=== PATIENT | female | born 1965 | race Caucasian/White ===

== ENCOUNTER 2017-11-11 05:59 | Day surgery (SDC) | payer OTHER, SELFPAY ==
--- NOTE | 2017-11-11 07:30 | MISC_PTH ---
PATIENT: ROSE REYES LOC: [facility] – [place] U#:[id number] AGE/SX: 52/F ROOM: RE11/11/[address]: Dr. Janiya Catalan, MDDOB: 1965 BED: DIS: 11/11/2017 SPEC #: [id number] RECD: 11/11/17 09:15 STATUS: RYLEE JABARI #: [id number] NAE: 11/11/17 07:[address]: Janiya Catalan DEPT: SURGICAL PATHOLOGY RECD BY: Teo Prasad ENTERED: 11/11/17 10:15 SP TYPE: MISC OTHR DR: Dr. Ivan Hannah MD Tissues: Fibrous tissue Procedures: Surgery Specimen Level IV HEADER OPERATION: Hysteroscopy, D & C, Symphion resection fibroid PRE-OP DIAGNOSIS: Thickened endometrium, postmenopausal bleeding, submucosal fibroid TISSUE SUBMITTED: Submucosal fibroid MICROSCOPIC DIAGNOSIS Submucosal fibroid, curettage: Multiple fragments of myometrial tissue consistent with submucosal leiomyoma. Weakly proliferative to inactive endometrium with focal stromal hyperplasia suggestive of exogenous hormonal defect. AM:georgina 11/12/17 MICROSCOPIC DESCRIPTION Slides are reviewed. GROSS DESCRIPTION Received in fixative is one container labeled with the patient's name and designated submucosal fibroid. The specimen consists of multiple pieces of vázquez-white soft tissue mixed with blood clots that in aggregate measure 3 x 2.5 x 0.3 cm. The entire specimen is submitted in one cassette. / SJ:georgina 11/11/17 TC:5 CPT: 67617 ADDENDUM ADDENDUM ADDENDUM ADDENDUM 11/17/2017 09:14 ADDENDUM 11/17/2017 09:14 ADDENDUM 11/17/2017 09:14 ADDENDUM 11/17/2017 09:14 ADDENDUM 11/17/2017 09:14 The stromal hyperplasia does not contain atypia. AM:georgina 11/17/17
[2017-11-11 07:34] LABS: Hemoglobin 14.4 g/dl (12.0-15.0); Mean Corp Hgb Conc 33.5 g/gl (32-36); Mean Corpuscular Hgb 30.6 pg (27.0-32.0); Mean Corpuscular Volume 91.3 fL (81-99); Mean Platelet Vol. 10.9 fl (6.2-12.0); Platelet Count 263 K/mm3 (150-450); RBC Distribution Width CV 12.9 % (11.6-14.6); RBC Distribution Width SD 42.4 fl (35.1-43.9); Red Blood Count 4.71 M/mm3 (4.2-5.4); White Blood Count 6.7 K/mm3 (4.4-11.0)
[2017-11-11 07:37] LABS: Scan Indicated on CBC? Y/N NO
[2017-11-11] MEDS: Lubricating Jelly 60 GM Tube 30 GM TOPICAL (07:41)
--- NOTE | 2017-11-11 08:11 | PCM.OP.BLANK ---
Operative Report Date of Procedure: 11/11/[address] Janiya Cruz-Vila Reinforcing Steel Worker: NONE Preoperative diagnosis:PMB, submucosal fibroid Postoperative diagnosis: Same Procedure performed: Hysteroscopy, dilation and curettage, Partial removal of submucosal fibroid Complications: None Implantable devices: none Estimated blood loss: 5 cc Drains: None Specimens: submucosal fibroid Anesthesia: MAC findings: Large submucosal fibroid noted approximately 4cm- unable to excise completely due to fluid deficit restrictions. I was able to visualize both ostia- cavity was evaluated multiple times during procedure due to fluid deficit of 2250cc but cavity was intact. bleeding from fibroid noted during procedure. Informed consent was obtained the patient was taken the operating room she was placed in supine position. She was given anesthesia. She was then placed in the [facility] where she was prepped and draped in the normal sterile fashion. At this time the weighted speculum was placed in the posterior fornix of vagina. Single-tooth tenaculum was used to gently grasp the anterior lip the cervix. At this time the uterine cavity was sounded to approximately 7 cm. Gentle dilatation was performed once adequate dilatation of the cervix was achieved the hysteroscope using normal saline as a distention medium was placed. large submucosal fibroid- with based located posteriorly- Tubal ostia visualized. Symphion operative scope was used to excise fibroid- unable to completly excise due to size and fluid deficit restrictions. This time procedure was deemed complete. Moderate amount of tissue removed. This will be sent to pathology for evaluation. procedure stopped at this time. pt in stable condition. will discuss findings and further management options with patient. Anticipated normal postoperative course. Instrument lap count correct ?2. Vaginal Sweep was negative.
[2017-11-11 08:17] VITALS: BP 114/75; BP 118/62; PULSE 77; RESP 16; TEMP 36.7; O2SAT 98
--- NOTE | 2017-11-11 08:18 | PCM.DC.D&C ---
Discharge Diet: No Restrictions Discharge Activity: Return to Normal Activity, May Shower, May Take a Tub Bath - in 2 weeks. May resume sexual activity in: 2 weeks Call your doctor if you observe: Fever of 101 or Higher, Using more than one pad per hour Allergies/Adverse Reactions: Allergies No Known Allergies Allergy (Verified 11/04/17 13:38) Medications to take at Discharge Aspirin E.C. [Ecotrin] 81 mg PO DAILY@0800 11/04/17 Calcium Carbonate/Vitamin D3 [Calcium 600-Vit D3 200 Tablet] 1 each PO DAILY 11/04/17 Cholecalciferol (Vitamin D3) [Vitamin D3] 1,000 unit PO DAILY 11/04/17 Multivitamin [Multiple Vitamins] 1 each PO DAILY 11/04/17 Pravastatin Sodium 80 mg PO DAILY 11/04/17 Ubidecarenone [Coq10] 100 mg PO DAILY 11/04/17 Ibuprofen [Motrin] 800 mg PO Q8H PRN PRN #30 tab 11/11/17 The following prescriptions were given: Ibuprofen [Motrin] 800 mg PO Q8H PRN PRN #30 tab PRN Reason: Pain Primary Care Physician: Ivan Hannah MD [Primary Care Provider] - Test Results: Test results from this visit will be discussed in further detail at your follow-up appointment, if applicable.
[2017-11-11 08:20] VITALS: BP 118/62; BP 123/71; PULSE 76; RESP 16; O2SAT 97
[2017-11-11 08:25] VITALS: BP 118/62; BP 123/71; PULSE 71; RESP 16; O2SAT 97
[2017-11-11 08:31] VITALS: BP 118/62; BP 124/77; PULSE 73; RESP 16; TEMP 36.7; O2SAT 96
[2017-11-11] MEDS: HYDROcodone Bitartrate/Apap 5/325 Tablet PO (08:47)
[2017-11-11 09:17] VITALS: BP 111/67; BP 118/62; PULSE 68; RESP 18; TEMP 36.2; O2SAT 97
== END 2017-11-11 09:19 | disposition home or self-care (01) ==
LOC: SDC 07:28 → AC 07:29
PROVIDERS: Family Provider Family Medicine; PCP Family Medicine; Visit Provider Obstetrics & Gynecology
PROC: (CPT 58558; principal; 2017-11-11 07:15)
DX: D25.0 Submucous leiomyoma of uterus (principal); N95.0 Postmenopausal bleeding; E78.00 Pure hypercholesterolemia, unspecified; F17.210 Nicotine dependence, cigarettes, uncomplicated; Z79.82 Long term (current) use of aspirin; Z79.899 Other long term (current) drug therapy
CPT/HCPCS: 58558; 36415; 85027; 88305; J7120

== ENCOUNTER 2018-01-13 07:25 | Day surgery (SDC) | payer OTHER, SELFPAY ==
--- NOTE | 2018-01-07 06:38 | EKG12_ITS ---
Test Reason : PRE OP Blood Pressure : / mmHG Vent. Rate : 069 BPM Atrial Rate : 069 BPM P-R Int : 188 ms QRS Dur : 092 ms QT Int : 384 ms P-R-T Axes : 062 036 040 degrees QTc Int : 411 ms Normal sinus rhythm Normal ECG Confirmed by KARINA MOHR, WALTER ([id number]), movie editor INGRID SIU ([id number]) on 01/10/2018 2:56:10 PM Referred By: Janiya Catalan Confirmed By:WALTER COLLINS MD
[2018-01-07 07:33] LABS: Hematocrit 43.2 % (37-47); Mean Corp Hgb Conc 32.4 g/gl (32-36); Mean Corpuscular Hgb 30.1 pg (27.0-32.0); Mean Corpuscular Volume 92.9 fL (81-99); Mean Platelet Vol. 11.1 fl (6.2-12.0); Platelet Count 268 K/mm3 (150-450); RBC Distribution Width CV 12.9 % (11.6-14.6); RBC Distribution Width SD 42.9 fl (35.1-43.9); Red Blood Count 4.65 M/mm3 (4.2-5.4); Scan Indicated on CBC? Y/N NO; White Blood Count 7.6 K/mm3 (4.4-11.0)
[2018-01-07 07:56] LABS: Anion Gap 9 (5-15); BUN 15 mg/dL (7-18); BUN/Creat Ratio 19.9 RATIO (10-20); Calcium,Total 9.4 mg/dL (8.5-10.1); Chloride 109 mmol/L (98-107); Creatinine, Serum 0.76 mg/dL (0.55-1.02); EST Glomerular Filtration Rate 85 mL/min (>60); Est Glom Filt Rate - Afr Amer 103 mL/min (>60); Glucose 89 mg/dL (74-106); Potassium 4.2 mmol/L (3.5-5.1); Sodium Level 142 mmol/L (136-145)
[2018-01-13] VITALS (7 sets, daily range): BP systolic 105–132; BP diastolic 60–98; PULSE 55–96; RESP 16–18; TEMP 35.8–36.9; O2SAT 93–100; BMI 30.9
--- NOTE | 2018-01-13 | HYST_PTH ---
PATIENT: ROSE REYES LOC: [facility] – [place] U#:[id number] AGE/SX: 52/F ROOM: RE01/13/[address]: Dr. Janiya Catalan, MDDOB: 1965 BED: DIS: 01/13/2018 SPEC #: [id number] RECD: 01/13/18 14:00 STATUS: RYLEE JABARI #: [id number] NAE: 01/13/18 00:[address]: Janiya Catalan DEPT: SURGICAL PATHOLOGY RECD BY: Drew Faulkner ENTERED: 01/13/18 14:00 SP TYPE: HYSTERECT OTHR DR: Dr. Ivan Hannah MD Tissues: Uterus, NOS Procedures: Surgery Specimen Level V HEADER OPERATION: Hysterectomy, laparoscopic total, bilateral laparoscopic salpingectomy PRE-OP DIAGNOSIS: Thickened endometrial echo in postmenopausal female, uterine fibroids TISSUE SUBMITTED: Uterus and bilateral fallopian tubes MICROSCOPIC DIAGNOSIS Uterus and bilateral fallopian tubes, hysterectomy and bilateral salpingectomy: Cervix - chronic inflammation. Endometrium - weakly proliferative endometrium. Myometrium - intramural to submucosal leiomyomas x2 (1.5 and 3 cm in greatest dimension). Bilateral fallopian tubes - no pathologic diagnosis. SJ:georgina 01/14/18 MICROSCOPIC DESCRIPTION Slides are reviewed. GROSS DESCRIPTION Received in fixative is one container labeled with the patient's name and designated uterus and bilateral fallopian tubes. The specimen consists of a hysterectomy specimen consisting of uterus with cervix and detached bilateral fallopian tubes. The uterus with cervix weighs 65 gm and measures 7 x 5 x 4 cm. The serosal surface is vázquez, glistening. The ectocervical mucosa is unremarkable. The external os is circular in contour. The endocervical canal measures 2.5 cm in length and the endocervical mucosa is unremarkable. The endometrial cavity is saucer-shaped and measures 4 cm in length and up to 3.5 cm in width. The endometrium is vázquez, glistening without any mass lesion. Sections of the uterine wall reveal intramural to submucosal nodular mass measuring 3 cm in greatest dimension. A second intramural mass is also noted measuring 1.5 cm in greatest dimension. Both nodular masses are present in the posterior uterine wall. The uninvolved uterine wall measures up to 1 cm in thickness. Sections of these masses reveal vázquez whorled cut surfaces without areas of hemorrhage, necrosis or cystic degeneration. The fallopian tubes are not identified as right or left. One of the fallopian tubes measure 5.5 cm in length and 0.5 cm in diameter. The fimbrial end is identified. The second fallopian tube is similar appearance to first one and measures 5 cm in length and 0.5 cm in diameter. Integrity Analyst sections are submitted in nine cassettes as follows: 1 - anterior cervix, 2 - posterior cervix, 3 & 4 - anterior uterine wall, 5 & 6 - posterior uterine wall, section of smaller nodular mass, 7 - larger nodular masses, 8 & 9 - each cassette containing one fallopian tube. / SHAMA:georgina 01/13/18 TC:1 CPT: 87325
[2018-01-13] MEDS: Phenazopyridine 95 MG Tablet 190 MG PO (08:03)
[2018-01-13] MEDS: Bupivacaine Mpf 0.5% 30 ML VIAL (09:40)
[2018-01-13] MEDS: Lubricating Jelly 60 GM Tube 30 GM TOPICAL (09:40)
--- NOTE | 2018-01-13 11:35 | OP.PCM_ITS ---
Report of Operation Date of Procedure: 01/13/18 Pre-Operative Diagnosis: PMB, Simple endometrial hyperplasia without atypia, Fibroid uterus Post-Operative Diagnosis: same Surgery/Procedure Performed:: TLH, Bilateral salpingectomy, cystoscopy Description of Surgical Findings:: Cervix flush with vagina- uterus small approximately 7cm. Bilateral ovaries appear normal. data management engineer: None data management engineer: Suzan Hancock Type of Anesthesia:: General Special Medications: .5% marcaine Specimen's removed: uterus, bilateral fallopian tubes, cervix Drains: blackwood Estimated Blood Loss (mL): 25cc Fluids Replaced: 1500 Description of Procedure: Patient take to OR and prepped and draped in usual sterile fashion in dorsal lithotomy position with her arms tucked in a neurologically safe and neutral position. The uterus sounded to 7 cm. The Vcare uterine manipulator was sutured into place at 3/9:00 position and blackwood was placed. Attention was turned to the abdomen. All port sites were infiltrated with .5% marcaine before the incisions were made. The anterior abdominal wall was tented up with towel clamps and using a direct entry approach a 5 mm intraumbilical port was placed. Intraperitoneal placement was confirmed with the laparoscope and the pneumoperitoneum was created. The patient was placed in Trendelenburg and 5 mm right and left lower quadrant ports were placed under direct visualization. a Left upper port placed for bowel retraction. Air seal rapid insufflator was used. The bowel was swept away. Ovaries appeared normal. The mesosalpinx starting at fimbriated end were grasped, clamped, sealed and transected with the Ligasure. The round ligaments were divided. The anterior peritoneum was dissected down to create the bladder flap with blunt dissection and the LigaSure. The uterine arteries were isolated, clamped, sealed and cut. There was minimal back bleeding from the uterus. Straight bites on uterine arteries performed to drop them off the cuff. The Vcare was used as guide to create colpotomy using monopolar hook of ligasure. once specimen was removed attention was turned to vaginal portion. The specimen was handed off. The cuff was closed with interrupted 0-vicryl figure of 8 sutures. Cystoscopy was performed bilateral ureters were visualized with good efflux. bladder was intact. blackwood replaced and sponge stick placed in vagina. The pneumoperitoneum was recreated and the cuff and pedicles were hemostatic. The skin incisions were closed with skin glue and 3-0 monocryl. mattress stitch placed in Left upper port due to bleeding- good hemostasis appreciated. The vaginal sweep was completed by me. Grafts/Implants Used: none Grafts/Implants Used: none - Complications none - Admit VTE Documentation VTE Present on Admission: Yes VTE Mechan Device Prophylaxis: SCD's VTE Pharm Prophylaxis ordered?: No
--- NOTE | 2018-01-13 11:44 | DCINST_ITS ---
Discharge Diet: No Restrictions Discharge Activity: Return to Normal Activity, May Not Drive - while taking narcotic pain medications., May Shower May resume sexual activity in: 6-8 weeks Call your doctor if your incision/area has: Continuous Slow Oozing, Sudden Increased Bleeding, Increased Pain/ Swelling, Increased Redness, Foul Smelling Discharge Call your doctor if you observe: Fever of 101 or Higher, Inability to urinate, Inability to have a bowel movement, Using more than one pad per hour Cleanse incision/area with: - - do not pick off skin glue. you may shower- let soap and water run over incision sites. dab dry. Allergies/Adverse Reactions: Allergies No Known Allergies Allergy (Verified 11/04/17 13:38) Medications to take at Discharge Aspirin E.C. [Ecotrin] 81 mg PO DAILY@0800 11/04/17 Calcium Carbonate/Vitamin D3 [Calcium 600-Vit D3 200 Tablet] 1 each PO DAILY 11/04/17 Cholecalciferol (Vitamin D3) [Vitamin D3] 1,000 unit PO DAILY 11/04/17 Multivitamin [Multiple Vitamins] 1 each PO DAILY 11/04/17 Pravastatin Sodium 80 mg PO DAILY 11/04/17 Ubidecarenone [Coq10] 100 mg PO DAILY 11/04/17 Ibuprofen [Motrin] 800 mg PO Q8H PRN PRN #30 tab 11/11/17 Primary Care Physician: Ivan Hannah MD [Primary Care Provider] - Test Results: Test results from this visit will be discussed in further detail at your follow- up appointment, if applicable. Please Follow Up With: Jnaiya Catalan MD When: as scheduled for 2 weeks post op
--- NOTE | 2018-01-13 15:37 | SUR.PHASEII ---
at 1505 when RN arrived to pt's room upon return from PACU, pt was getting dressed for home. male sig other at bedside. pt repeated stated she just wanted to leave. informed of discharge criteria. eager to get up to BR. up to BR, gait steady. back to room. pt karen cookies, no c/o nausea. repeating again that she just wants to leave. when RN reviewed homegoing instructions verbally. verbalizes understanding. informed that eMichellescribed naprosyn and that it was ready at [facility]. immediately, pt started crying and with raised voice said that you never give her anything more than naprosyn. and that she was in great pain. RN offered ordered dose of Spangle. pt didn't want it then decided she did. given per orders. informed to wait 20min for vs assessment.
== END 2018-01-13 15:47 | disposition home or self-care (01) ==
LOC: SDC 07:27 → AC 07:27
PROVIDERS: Family Provider Family Medicine; PCP Family Medicine; Referring Provider Obstetrics & Gynecology; Visit Provider Obstetrics & Gynecology
PROC: 0UT94ZZ Resection of Uterus, Percutaneous Endoscopic Approach (ICD-10-PCS; CPT 840; principal; 2018-01-13 08:40)
DX: D25.1 Intramural leiomyoma of uterus (principal); D25.0 Submucous leiomyoma of uterus; N72 Inflammatory disease of cervix uteri; E78.00 Pure hypercholesterolemia, unspecified; F17.200 Nicotine dependence, unspecified, uncomplicated; Z79.82 Long term (current) use of aspirin; Z79.891 Long term (current) use of opiate analgesic; Z79.899 Other long term (current) drug therapy
CPT/HCPCS: 00840; 52000; 58571; 36415; 80048; 85027; 86850; 86900; 88307; 93005; J7120; J2405

== ENCOUNTER → 2018-11-02 08:04 | Outpatient (CLI) | payer OTHER, SELFPAY ==
[2018-11-02 13:09] LABS: AST(SGOT) 19 U/L (15-37); Alanine Aminotransfer ALT/SGPT 31 U/L (13-56); Albumin, Serum 3.7 g/dL (3.2-5.0); Alkaline Phosphatase 76 U/L (45-117); Anion Gap 8 (5-15); BUN 12 mg/dL (7-18); BUN/Creat Ratio 19.6 RATIO (10-20); Calcium,Total 9.1 mg/dL (8.5-10.1); Chloride 110 mmol/L (98-107); Cholesterol 206 mg/dL (200); Creatinine, Serum 0.61 mg/dL (0.55-1.02); EST Glomerular Filtration Rate 108 mL/min (>60); Est Glom Filt Rate - Afr Amer 131 mL/min (>60); Globulin 3.6 g/dL (2.2-4.2); Glucose 92 mg/dL (74-106); High Density Lipoprotein 59 mg/dL; Protein, Total 7.3 g/dL (6.4-8.2); Sodium Level 141 mmol/L (136-145); Thyroid Stim Hormone (TSH) 1.74 uIU/mL (0.358-3.74); Triglycerides 119 mg/dL; Very Low Density Lipoprotein 24 mg/dL (5-40)
== END ==
PROVIDERS: Family Provider Family Medicine; PCP Family Medicine; Visit Provider Family Medicine
DX: E78.5 Hyperlipidemia, unspecified (principal)
CPT/HCPCS: 36415; 80053; 80061; 84443

== ENCOUNTER → 2019-02-07 | Outpatient (CLI) | payer OTHER, SELFPAY ==
[2019-02-07 12:07] VITALS: BMI 32.1
--- NOTE | 2019-02-07 12:34 | CT_ITS ---
STUDY: LOW DOSE CT LUNG CANCER SCREENING REASON FOR EXAM: Female, 54 years old. 30 pack-year history of smoking. RADIATION DOSAGE (If Supplied By Facility): CTDIvol = ( 3.02 ) mGy, DLP = ( 99.68 ) mGycm TECHNIQUE: No contrast was administered. Low dose technique was utilized (average mAS-38 and kVp 120). 1.25 mm axial source images with a slice interval of 1.25-mm were reconstructed in lung windows. 2.5 mm axial source images with a slice interval of 2.5-mm were reconstructed in lung windows. 5.0 mm axial source images with a slice interval of 5.0-mm were reconstructed in soft tissue windows. Nodule measured using lung windows on PACS and/or independent workstation with automated measurement of minimum and maximum diameter. Nodule measurement reported as average diameter rounded to the nearest whole number. Growth is defined as an increase ins size of greater than 1.5 mm. COMPARISON: None. NODULES: No suspicious nodules are seen. Emphysema: Mild increased markings in the lingular segment of the left upper lobe as well as in the medial aspect of the right middle lobe with areas of bronchiectasis suggestive of scarring. Aorta: Atherosclerotic calcific plaques at the aortic arch. Coronary arteries: Coronary artery calcification. Mediastinal nodes: Small benign appearing axillary lymph nodes. Other chest and abdominal findings: Degenerative changes of the thoracic spine. CT/Low Dose CT Lung Screening IMPRESSION: Lung-RADS category 2 - Continue annual screening with LDCT in 12 months. IMPORTANT NOTES FOR USE: ACR Lung-RADS Version 1.0 Assessment Categories Release Date: July 24, 2013 Category: Coded 0-4 bases on nodule(s) with highest degree of suspicion. Negative screen is defined as categories 1 and 2; a positive screen is defined as categories 3 and 4. Category 3 and 4A nodules that are unchanged on interval CT should be coded as category 2, and individuals returned to screening in 12 months. Category 4X: Category 3 or 4 nodules with additional imaging findings that increase the suspicion of lung cancer, such as spiculation, GGN that doubles in size in 1 year, enlarged lymph notes, etc. Category Modifiers: S (significant finding unrelated to lung cancer) and C (prior history of treated lung cancer) may be added to the 0-4 Lung-RADS Electronically Signed: Narendra Patel, at 13:33 EST , Service support ,
== END | disposition home or self-care (01) ==
LOC: CT 12:34
PROVIDERS: Family Provider Family Medicine; PCP Family Medicine; Referring Provider Nurse Practitioner Family; Visit Provider Nurse Practitioner Family
DX: Z12.2 Encounter for screening for malignant neoplasm of respiratory organs (principal); F17.200 Nicotine dependence, unspecified, uncomplicated
CPT/HCPCS: G0297

== ENCOUNTER → 2020-02-13 13:26 | Outpatient (CLI) | payer OTHER, SELFPAY ==
[2019-02-07 12:07] VITALS: BMI 32.1
--- NOTE | 2020-02-13 13:32 | CT_ITS ---
STUDY: LOW DOSE CT LUNG CANCER SCREENING REASON FOR EXAM: Female, 55 years old. LUNG CA SCREenING, 31 PACK YEAR HISTORY. CURRENT SMOKER X 1PPD, IU=530 RADIATION DOSAGE (If Supplied By Facility): CTDIvol = ( 3.02 ) mGy, DLP = ( 96.28 ) mGycm TECHNIQUE: No contrast was administered. Low dose technique was utilized (average mAS-38 and kVp 120). 1.25 mm axial source images with a slice interval of 1.25-mm were reconstructed in lung windows. 2.5 mm axial source images with a slice interval of 2.5-mm were reconstructed in lung windows. 5.0 mm axial source images with a slice interval of 5.0-mm were reconstructed in soft tissue windows. Nodule measured using lung windows on PACS and/or independent workstation with automated measurement of minimum and maximum diameter. Nodule measurement reported as average diameter rounded to the nearest whole number. Growth is defined as an increase ins size of greater than 1.5 mm. COMPARISON: Comparison is made with prior study dated 02/07/2019. NODULES: No suspicious nodules are seen. Emphysema: Mild degree of linear scarring along the anterior medial aspect of the right middle lobe as well as the lingular segment of the left upper lobe. Mild scarring along the posterior medial segment of the right lower lobe. Endobronchial lesion: None Aorta: Atherosclerotic plaque formation. Coronary arteries: Coronary calcification. Heart: Unremarkable. Mediastinal nodes: Small benign-appearing mediastinal lymph nodes. Other chest and abdominal findings: Degenerative changes of the thoracic spine. CT/Low Dose CT Lung Screening IMPRESSION: Lung-RADS category 2 - Continue annual screening with LDCT in 12 months. IMPORTANT NOTES FOR USE: ACR Lung-RADS Version 1.0 Assessment Categories Release Date: July 24, 2013 Category: Coded 0-4 bases on nodule(s) with highest degree of suspicion. Negative screen is defined as categories 1 and 2; a positive screen is defined as categories 3 and 4. Category 3 and 4A nodules that are unchanged on interval CT should be coded as category 2, and individuals returned to screening in 12 months. Category 4X: Category 3 or 4 nodules with additional imaging findings that increase the suspicion of lung cancer, such as spiculation, GGN that doubles in size in 1 year, enlarged lymph notes, etc. Category Modifiers: S (significant finding unrelated to lung cancer) and C (prior history of treated lung cancer) may be added to the 0-4 Lung-RADS Electronically Signed: Narendra Patel, at 14:04 EST , Service support ,
== END ==
PROVIDERS: PCP Family Medicine; Referring Provider Nurse Practitioner Family; Visit Provider Nurse Practitioner Family
DX: Z12.2 Encounter for screening for malignant neoplasm of respiratory organs (principal); F17.210 Nicotine dependence, cigarettes, uncomplicated
CPT/HCPCS: G0297

== ENCOUNTER → 2020-12-26 16:56 | Outpatient (CLI) | payer OTHER, SELFPAY | PROVIDERS: PCP Family Medicine; Visit Provider Family Medicine | DX: Z20.828 Contact with and (suspected) exposure to other viral communicable diseases (principal) | CPT/HCPCS: 87635; U0005; U0003 ==

== ENCOUNTER → 2021-03-18 14:40 | Outpatient (CLI) | payer OTHER, SELFPAY ==
--- NOTE | 2021-03-18 14:44 | CT_ITS ---
STUDY: LOW DOSE CT LUNG CANCER SCREENING REASON FOR EXAM: Female, 56 years old. Lung cancer screening -- 33 pk yr hx; former smoker; asymptomatic RADIATION DOSAGE (If Supplied By Facility): CTDIvol = ( 3.18 ) mGy, DLP = ( 108.81 ) mGycm TECHNIQUE: No contrast was administered. Low dose technique was utilized (average mAS-38 and kVp 120). 1.25 mm axial source images with a slice interval of 1.25-mm were reconstructed in lung windows. 2.5 mm axial source images with a slice interval of 2.5-mm were reconstructed in lung windows. 5.0 mm axial source images with a slice interval of 5.0-mm were reconstructed in soft tissue windows. Nodule measured using lung windows on PACS and/or independent workstation with automated measurement of minimum and maximum diameter. Nodule measurement reported as average diameter rounded to the nearest whole number. Growth is defined as an increase ins size of greater than 1.5 mm. COMPARISON: Comparison is made with prior examination of 02/13/2020. NODULES: No suspicious nodules are seen. Emphysema: Mild degree of emphysematous changes. Stable mild degree of scarring and bronchiectasis in the medial aspect of the right middle lobe as well as the lingular segment of the left upper lobe. Endobronchial lesion: None Aorta: Atherosclerotic plaque formation of the aortic arch. Coronary arteries: Coronary artery calcification. Heart: Unremarkable Pulmonary artery: Unremarkable Mediastinal nodes: Small benign-appearing mediastinal lymph nodes. Other chest and abdominal findings: Degenerative changes of the dorsal spine. CT/Low Dose CT Lung Screening IMPRESSION: Lung-RADS category 2 - Continue annual screening with LDCT in 12 months. IMPORTANT NOTES FOR USE: ACR Lung-RADS Version 1.1 Assessment Categories Release Date: 2018 Category: Coded 0-4 bases on nodule(s) with highest degree of suspicion. Negative screen is defined as categories 1 and 2; a positive screen is defined as categories 3 and 4. Category 3 and 4A nodules that are unchanged on interval CT should be coded as category 2, and individuals returned to screening in 12 months. Category 4X: Category 3 or 4 nodules with additional imaging findings that increase the suspicion of lung cancer, such as spiculation, GGN that doubles in size in 1 year, enlarged lymph notes, etc. Category Modifiers: S (significant finding unrelated to lung cancer) Electronically Signed: Narendra Patel MD at 15:09 EST , Service support ,
== END ==
PROVIDERS: PCP Family Medicine; Referring Provider Nurse Practitioner Family; Visit Provider Nurse Practitioner Family
DX: Z87.891 Personal history of nicotine dependence (principal); Z12.2 Encounter for screening for malignant neoplasm of respiratory organs
CPT/HCPCS: 71271

== ENCOUNTER → 2022-04-08 | Outpatient (CLI) | payer OTHER, SELFPAY ==
[2022-04-08 13:09] LABS: AST(SGOT) 23 U/L (15-37); Alanine Aminotransfer ALT/SGPT 39 U/L (13-56); Albumin, Serum 3.8 g/dL (3.2-5.0); Alkaline Phosphatase 68 U/L (45-117); Anion Gap 8 (5-15); BUN 13 mg/dL (7-18); BUN/Creat Ratio 17.7 RATIO (10-20); Calcium,Total 9.6 mg/dL (8.5-10.1); Chloride 105 mmol/L (98-107); Cholesterol 252 mg/dL (200); Creatinine, Serum 0.74 mg/dL (0.55-1.02); EST Glomerular Filtration Rate 86 mL/min (>60); Est Glom Filt Rate - Afr Amer 104 mL/min (>60); Glucose 97 mg/dL (74-106); High Density Lipoprotein 63 mg/dL; Potassium 4.5 mmol/L (3.5-5.1); Protein, Total 7.8 g/dL (6.4-8.2); Sodium Level 140 mmol/L (136-145); Thyroid Stim Hormone (TSH) 1.86 uIU/mL (0.358-3.74); Triglycerides 144 mg/dL; Very Low Density Lipoprotein 29 mg/dL (5-40)
== END | disposition home or self-care (01) ==
LOC: BFHLAB 08:42
PROVIDERS: PCP Family Medicine; Visit Provider Family Medicine
DX: E78.5 Hyperlipidemia, unspecified (principal)
CPT/HCPCS: 36415; 80053; 80061; 84443

== ENCOUNTER → 2022-04-21 | Outpatient (CLI) | payer OTHER, SELFPAY ==
--- NOTE | 2022-04-21 14:37 | CT_ITS ---
STUDY: LOW DOSE CT LUNG CANCER SCREENING REASON FOR EXAM: Female, 57 years old. Lung cancer screening -- and gt;30 pk yr hx; former smoker; asymptomatic RADIATION DOSAGE (If Supplied By Facility): CTDIvol = ( 4.02 ) mGy, DLP = ( 133.91 ) mGycm TECHNIQUE: No contrast was administered. Low dose technique was utilized (average mAS-38 and kVp 120). 1.25 mm axial source images with a slice interval of 1.25-mm were reconstructed in lung windows. 2.5 mm axial source images with a slice interval of 2.5-mm were reconstructed in lung windows. 5.0 mm axial source images with a slice interval of 5.0-mm were reconstructed in soft tissue windows. COMPARISON: Comparison is made with prior study dated 03/18/2021. NODULES: No suspicious nodules are seen. Emphysema: Stable mild degree of emphysematous changes. Stable mild degree of scarring and bronchiectasis in the medial aspect of the right middle lobe as well as the lingular segment of the left upper lobe. Endobronchial lesion: Unremarkable Aorta: Minimal atherosclerotic plaque formation of the aortic arch. CORONARY ARTERIES: Coronary artery calcification is seen. Heart: Unremarkable. Pulmonary artery: Unremarkable Mediastinal nodes: Small mediastinal lymph nodes. Other chest and abdominal findings: CT/Low Dose CT Lung Screening IMPRESSION: Lung-RADS category 2 - Continue annual screening with LDCT in 12 months. IMPORTANT NOTES FOR USE: ACR Lung-RADS Version 1.1 Assessment Categories Release Date: 2018 Category: Coded 0-4 bases on nodule(s) with highest degree of suspicion. Negative screen is defined as categories 1 and 2; a positive screen is defined as categories 3 and 4. Category 3 and 4A nodules that are unchanged on interval CT should be coded as category 2, and individuals returned to screening in 12 months. Category 4X: Category 3 or 4 nodules with additional imaging findings that increase the suspicion of lung cancer, such as spiculation, GGN that doubles in size in 1 year, enlarged lymph notes, etc. Category Modifiers: S (significant finding unrelated to lung cancer) Electronically Signed: Narendra Patel MD at 15:30 EST ,
== END | disposition home or self-care (01) ==
LOC: CT 14:37
PROVIDERS: PCP Family Medicine; Referring Provider Nurse Practitioner Family; Visit Provider Nurse Practitioner Family
DX: Z87.891 Personal history of nicotine dependence (principal); Z12.2 Encounter for screening for malignant neoplasm of respiratory organs
CPT/HCPCS: 71271

== ENCOUNTER → 2023-03-19 | Outpatient (CLI) | payer OTHER, SELFPAY | END | disposition home or self-care (01) | LOC: LABSPEC 12:10 | PROVIDERS: PCP Family Medicine; Visit Provider Nurse Practitioner Family | DX: N39.0 Urinary tract infection, site not specified (principal) | CPT/HCPCS: 87086 ==

== ENCOUNTER → 2023-04-27 | Outpatient (CLI) | payer OTHER, SELFPAY ==
--- NOTE | 2023-04-27 15:08 | CT_ITS ---
STUDY: LOW DOSE CT LUNG CANCER SCREENING REASON FOR EXAM: Female, 58 years old. Lung cancer screening -- 30 pk yr hx;former smoker; asymptomatic RADIATION DOSAGE (If Supplied By Facility): CTDIvol = ( 2.39 ) mGy, DLP = ( 83.99 ) mGycm TECHNIQUE: No contrast was administered. Low dose technique was utilized (average mAS-38 and kVp 120). 1.25 mm axial source images with a slice interval of 1.25-mm were reconstructed in lung windows. 2.5 mm axial source images with a slice interval of 2.5-mm were reconstructed in lung windows. 5.0 mm axial source images with a slice interval of 5.0-mm were reconstructed in soft tissue windows. COMPARISON: Comparison is made with prior study dated April 21, 2022. NODULES: No suspicious nodules are seen. Emphysema: Stable emphysematous changes. Mild degree of scarring at the lung bases. Endobronchial lesion: None Aorta: Mild atherosclerotic plaque formation of the aortic arch. CORONARY ARTERIES: Coronary artery calcification is not seen. Heart: Unremarkable Pulmonary artery: Unremarkable Mediastinal nodes: Small benign-appearing mediastinal lymph nodes. Other chest and abdominal findings: CT/Low Dose CT Lung Screening IMPRESSION: Lung-RADS category 2 - Continue annual screening with LDCT in 12 months. IMPORTANT NOTES FOR USE: ACR Lung-RADS Version 1.1 Assessment Categories Release Date: 2018 Category: Coded 0-4 bases on nodule(s) with highest degree of suspicion. Negative screen is defined as categories 1 and 2; a positive screen is defined as categories 3 and 4. Category 3 and 4A nodules that are unchanged on interval CT should be coded as category 2, and individuals returned to screening in 12 months. Category 4X: Category 3 or 4 nodules with additional imaging findings that increase the suspicion of lung cancer, such as spiculation, GGN that doubles in size in 1 year, enlarged lymph notes, etc. Category Modifiers: S (significant finding unrelated to lung cancer) Electronically Signed: Narendra Patel MD at 15:33 EST ,
--- OUTSIDE RECORDS SUMMARY | 2023-04-27 15:27 | XMS RPT_ITS | CCD ---
Author Name Unknown Address [address] [place] [address] Organization [facility] Care Team Providers Care Student Liaison Officer Name Role Phone Teo Briones Jr. Primary Care Provider [phone] TEO BRIONES JR Primary Care Unavailable LINDA ARREDONDO Referring Unavail TEO Gomes JR Primary Care Unavailable LINDA ARREDONDO Attending Unavail jessica Briones Jr., MD, Teo Hannah Primary Care Provider Medications Completed/Discontinued Medications Medication Drug Class(es) Dates Sig (Normalized) Sig (Original) aspirin 81 mg delayed release oral tablet (6 sources) Platelet Aggregation Inhibitor, Nonsteroidal Anti-inflammatory Drug take 1 tablet by mouth once daily aspirin, enteric coated (ASPIRIN, ENTERIC COATED) 81 mg EC tablet Take 81 mg by mouth once daily. 0 Active Problems Active Problems Problem Classification Problem Date Documented Date Episodic/Chronic Menopausal disorders (6 sources) Abnormal perimenopausal bleeding; Translations: [Excessive bleeding in the premenopausal period] Onset: 01-07-2012 01-07-2012 Chronic Other screening for suspected conditions (not mental disorders or infectious disease) (8 sources) Patient encounter status; Translations: [Encounter for screening mammogram for malignant neoplasm of breast] Onset: 06-23-2022 Episodic Past or Other Problems Problem Classification Problem Date Documented Date Episodic/Chronic Immunizations and screening for infectious disease (1 source) Encounter for screening for human papillomavirus (HPV); Translations: [Special screening examination for human papillomavirus (HPV)] Onset: 06-23-2022 Episodic Results Test Name Value Interpretation Reference Range Facil ity Vital Signs Date Time Vital Sign Value Performing Clinician Faci lity 06-23-2022 08:33-0400 Body height 168.5 cm Linda Vila MD Work Phone: [facility] 06-23-2022 08:33-0400 Body weight 97.16 kg Linda Vila MD Work Phone: [facility] 06-23-2022 08:33-0400 Diastolic blood pressure 74 mm[Hg] Linda Vila MD Work Phone: [facility] 06-23-2022 08:33-0400 Systolic blood pressure 106 mm[Hg] Linda Vila MD Work Phone: [facility] 06-20-2021 08:41-0400 Body height 168.5 cm Linda Vila MD Work Phone: [facility] 06-20-2021 08:41-0400 Body weight 97.98 kg Linda Vila MD Work Phone: [facility] 06-20-2021 08:41-0400 Diastolic blood pressure 84 mm[Hg] Linda Vila MD Work Phone: [facility] 06-20-2021 08:41-0400 Systolic blood pressure 136 mm[Hg] Linda Vila MD Work Phone: [facility] Encounters Encounter Date Encounter Type Care Provider Facility Start: 11-24-2022 Documentation procedure Mammog matheus Coordinator [facility] Start: 11-24-2022 Letter encounter Mammography Coordinator [facility] Department Start: 11-24-2022 End: 11-24-2022 ambulatory TEO BRIONES JR Facility:[facility] Start: 11-24-2022 End: 11-24-2022 Subsequent hospital visit by physician Screen Mammo [facility] Mammogram Procedures Date Procedure Procedure Detail Performing Clinician Start: 11-24-2022 End: 11-24-2022 Mammography Linda potter MD Work Phone: Start: 11-21-2021 JOB SCREENING W ESSIE Laguerre MD Work Phone: Start: 11-21-2021 Mammography Screen [facility]st [facility] Start: 11-18-2020 Mammography Linda Vila MD Work Phone: Start: 06-08-2019 Colonoscopy Linda Vila MD Work Phone: Start: 12-24-2014 Lipid 1996 panel - S luisito or Plasma Screen Wstr Plan of Treatment Date Care Activity Detail Author Start: 06-07-2024 Colonoscopy COLONOSCOPY [facility] Start: 06-07-2024 COLORECTAL CANCER SCREENING COLORECTAL CANCER SCREENING [facility] Start: 11-25-2023 Mammography [facility] Start: 11-27-2022 Covid-19 Vaccine () Covid-19 Vaccine () [facility] Start: 11-27-2022 Influenza vaccination [facility] Start: 11-21-2022 Mammography MAMMOGRAM [facility] Start: 03-29-2022 DEPRESSION ASSESSMENT DEPRESSION ASSESSMENT [facility] Start: 11-27-2021 Influenza vaccination INFLUENZA (#1) [facility] Start: 11-18-2021 Mammography MAMMOGRAM [facility] Start: 06-24-2021 HPV TESTING HPV TESTING [facility] Start: 06-24-2021 PAP TESTING PAP TESTING [facility] Start: 06-01-2021 COVID-19 VACCINE (4 - Booster for Pfizer series) COVID-19 VACCINE (4 - Booster for Pfizer series) [facility] Start: 11-27-2020 Influenza vaccination INFLUENZA (#1) [facility] Start: 12-25-2019 Lipid 1996 panel - Serum or Plasma Lipid Screening [facility] Start: 12-25-2019 LIPID SCREEN LIPID SCREEN [facility] Start: 12-24-2017 DIABETES SCREEN DIABETES SCREEN [facility] Start: 12-24-2017 Diabetes Screening Diabetes Screening [facility] Start: 01-29-2014 SHINGRIX VACCINE (1 of 2) SHINGRIX VACCINE (1 of 2) [facility] Start: 01-29-2009 COLOGUARD (FIT-DNA) COLOGUARD (FIT-DNA) [facility] Start: 01-29-[address] COLONOGRAPHY [facility] Start: 01-29-2009 FECAL OCCULT BLOOD FECAL OCCULT BLOOD [facility] Start: 01-29-2009 SIGMOIDOSCOPY SIGMOIDOSCOPY [facility] Start: 01-29-1983 Urine microalbumin profile [facility] Start: 01-29-1982 HEPATITIS C SCREENING HEPATITIS C SCREENING [facility] Start: 01-29-1982 HIV SCREENING HIV SCREENING [facility] Start: 1976 Adult depression screening assessment DEPRESSION SCREENING [facility] Start: 1965 HEPATITIS B (1 of 3 - 3-dose series) HEPATITIS B (1 of 3 - 3-dose series) [facility] Start: 1965 Hepatitis B Vaccine (1 of 3 - 3-dose series) Hepatitis B Vaccine (1 of 3 - 3-dose series) [facility] End: 07-20-2022 JOB SCREENING W ESSIE JOB SCREENING W ESSIE Radiology Routine Encounter for screening mammogram for malignant neoplasm of breast 1 Occurrences starting 06/20/2021 until 07/20/2022 [facility] Work Phone: Payers Date Payer Category Payer Unknown MMO MMO [employer] [id number] 2018-Present [phone] [address] [place] [address] PPO [id number] 2018 Unknown [id number] 2018 Unknown [id number] Social History Date Type Detail Facility Start: 06-19-2020 End: 06-23-2022 Tobacco smoking status NHIS Ex-smoker [facility] End: 09-10-2014 History of tobacco use Current smoker [facility] End: 09-10-2014 History of tobacco use Cigarette Smoker [facility] Start: 06-19-2020 End: 11-24-2022 Cigarettes smoked current (pack per day) - Reported 0.3 [facility] Start: 06-19-2020 End: 06-23-2022 Tobacco use and exposure Smokeless tobacco non-user [facility] Start: 06-20-2021 End: 06-23-2022 Alcohol intake Current drinker of alcohol (finding) [facility] Start: 06-08-2019 History SDOH Alcohol Comment 1 mixed drink per night [facility] Start: 06-08-2019 End: 06-23-2022 Tobacco Comment 06/07/2019 states 4 cigs per day [facility] Start: 1965 Sex Assigned At Female [facility] Start: 10-21-2021 End: 10-31-2021 Exposure to SARS-CoV-2 (event) Not sure [facility] Start: 06-23-2022 End: 11-24-2022 Tobacco use panel [facility] National Score (1-10 0), lower number is lower risk 65 [facility] Start: 06-15-2020 Gender identity Identifies as female gender (finding) [facility] Start: 06-15-2020 Sexual orientation Heterosexual (fin ding) [facility] Clinical Notes 06-14-2014 to 11-24-2022 Letter - Coordinator, Mammography - 11/24/2022 10:01 AM EDTBMargraet thomas Mammo Tech - 11/24/2022 7:50 AM EDTDemahamed Vila MD - 06/23/2022 8:38 AM EDT Note Date & Type Note Facility 11-24-2022 Miscellaneous Notes November 24, 2022 PID: [id number] Tata Julien [address] [place] [address] Dear Ms. Julien, We are pleased to inform you that the results of your recent breast imaging exam on 11/24/2022 are normal. Early detection of cancer is very important. We also understand recommendations regarding breast cancer screening are controversial. Please discuss with your primary care provider which strategy is best for you and whether a mammogram is right for you. Your imaging studies and report will be kept on file at [facility] as part of your permanent medical record and are available for your continuing care. Thank you for allowing us to help in meeting your health care needs. Sincerely, Dr. Reddy Interpreting Radiologist [facility] (Normal over 40) documented in this encounter [facility] 11-24-2022 Note HNO ID: [id number] Author: Margaret Jovel Mammo Tech Service: ? Author Type: Die Cutter Type: Progress Notes Filed: 11/24/2022 8:09 AM Note Text: Radiology Service Progress Note PATIENT NAME: Tata Julien DATE OF SERVICE: November 24, 2022 TIME: 7:49 AM PATIENT IDENTITY VERIFICATION COMPLETED USING TWO (2) IDENTIFIERS: Name and Date of confirmed by patient verbally. FALL SCREENING: Has the patient had 2 falls in the last year or 1 fall with injury or currently using an Ambulatory Assistive Device (Walker, Cane, Wheelchair, Crutches, etc.)? No PATIENT GENDER DATA: Female. status: : No status: NO. PATIENT RELEVANT IMPLANT DATA REVIEWED: Not Applicable RADIOLOGY DEPARTMENT: Mammography PERIPHERAL IV DATA: Not applicable SIGNED BY: Loni NevarezAmulyte November 24, 2022 7:[address] [facility] 11-24-2022 History of Presen t illness Narrative Radiology Service Progress Note PATIENT NAME: Tata Julien DATE OF SERVICE: November 24, 2022 TIME: 7:49 AM PATIENT IDENTITY VERIFICATION COMPLETED USING TWO (2) IDENTIFIERS: Name and Date of confirmed by patient verbally. FALL SCREENING: Has the patient had 2 falls in the last year or 1 fall with injury or currently using an Ambulatory Assistive Device (Walker, Cane, Wheelchair, Crutches, etc.)? No PATIENT GENDER DATA: Female. status: : No status: NO. PATIENT RELEVANT IMPLANT DATA REVIEWED: Not Applicable RADIOLOGY DEPARTMENT: Mammography PERIPHERAL IV DATA: Not applicable SIGNED BY: Margaret Jovel Yun Yun Elle November 24, 2022 7:49 AM documented in this encounter [facility] 06-23-2022 Note HNO ID: [id number] Author: Linda Vila MD Service: ? Author Type: Physician Type: Progress Notes Filed: 06/23/2022 9:58 AM Note Text: Tata is a 57 year old who presents for an annual gynecologic exam without complaints. Working [employer]. Loves to [employer]. Postmenopausal: Yes HRT use: No. Last Pap: 06/30/2016 normal HPV: 06/26/2016 negative History of abnormal pap: No Last mammogram: 2021 normal History of abnormal mammogram: No -- left sided cyst, category 2 in 2010 Sexually active: Yes History of STDS: None Patient concerns for STD exposure: No. 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 History Comments: Sexual Activity: Yes; Male; hysterectomy Contraception: None, Surgical PAST MEDICAL HISTORY Diagnosis Date Elevated cholesterol Emphysema lung (HCC) 02/07/2019 mild Fibroid uterus Post-menopausal bleeding Simple endometrial hyperplasia without atypia Snoring PAST SURGICAL HISTORY Procedure Laterality Date COLONOSCOPY FLX DX W/COLLJ SPEC WHEN PFRMD 06/14/2014 Colonoscopy COLONOSCOPY FLX DX W/COLLJ SPEC WHEN PFRMD 06/08/2019 [facility] EXCISION GANGLION WRIST DORSAL/VOLAR PRIMARY right HYSTERECTOMY 01/13/2018 [facility] PAST SURGICAL HISTORY OF 11/11/2017 Hysteroscopy DANDC, Partial removal of submucosal fibroid SALPINGECTOMY Bilateral 01/13/2018 B/L [facility] STEREOTACTIC LOCALIZATION BREAST BIOPSY Left 09/08/2005 Dr. Leon TONSILLECTOMY AND ADENOIDECTOMY FAMILY HISTORY Problem Relation Age of Onset Cancer Mother lung SOCIAL HISTORY Social History Tobacco Use Smoking status: Former Packs/day: 0.30 Types: Cigarettes Quit date: 09/10/2014 Years since quittin.7 Smokeless tobacco: Never Tobacco comments: 06/07/2019 states 4 cigs per day Vaping Use Vaping Use: Never used Substance Use Topics Alcohol use: Yes Alcohol/week: 10.0 standard drinks Types: 4 Mixed Drinks per week Comment: 1 mixed drink per night Drug use: No REVIEW OF SYSTEMS Abdomen: No abdominal pain, nausea, vomiting, diarrhea, or constipation. No bloating, early satiety, indigestion, or increased flatulence. Bladder: No dysuria, gross hematuria, urinary frequency, urinary urgency, or incontinence Breast: No breast lumps, nipple d/c, overlying skin changes, redness or skin retraction Allergies and current medication updated:Yes EXAM: BP 106/74 Ht 5' 6.34 (1.69m) Wt 214 lb 3.2 oz (97.2kg) LMP 11/18/2015 BMI 34.22 kg/(m2). GENERAL: pleasant, female in no apparent distress HEENT: Normocephalic, atraumatic, mucus membranes moist, and no lesions NECK: Supple, full range of motion, no adenopathy, and thyroid normal DERMATOLOGY: Normal, without lesions, non-icteric, and non-hirsute BREAST: soft, non-tender, symmetric, no dominant mass, normal nipple-areolar complex, no lymphadenopathy, and no nipple discharge ABDOMEN: soft, non-tender, and no masses PELVIC: external genitalia normal, normal Bartholin's glands, urethra, [place]'s glands, no vulvar lesions, good vaginal support, physiologic discharge present, normal appearing perineal body and perianal region, cervix surgically absent BIMANUAL: no adnexal masses, non-tender, and uterus surgically absent RECTOVAGINAL: deferred. NEURO: alert and oriented x3,exam grossly non-focal EXTREMITIES: normal ASSESSMENT/PLAN: 1) Health maintenance: Pap/HPV screening no longer needed Mammogram ordered Mammogram up to date Nutrition, exercise and routine health maintenance exams reviewed. Calcium/Vitamin D supplementation information provided. Colon cancer screening: up to date with screening 2) Follow up one year or sooner as needed Linda Catalan MD [facility] 06-23-2022 History of Presen t illness Narrative Tata is a 57 year old who presents for an annual gynecologic exam without complaints. Working [email or web address] Loves to [employer] and [employer]. Postmenopausal: Yes HRT use: No. Last Pap: 06/30/2016 normal HPV: 06/26/2016 negative History of abnormal pap: No Last mammogram: 2021 normal History of abnormal mammogram: No -- left sided cyst, category 2 in 2010 Sexually active: Yes History of STDS: None Patient concerns for STD exposure: No. 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 History Comments: Sexual Activity: Yes; Male; hysterectomy Contraception: None, Surgical PAST MEDICAL HISTORY Diagnosis Date Elevated cholesterol Emphysema lung (HCC) 02/07/2019 mild Fibroid uterus Post-menopausal bleeding Simple endometrial hyperplasia without atypia Snoring PAST SURGICAL HISTORY Procedure Laterality Date COLONOSCOPY FLX DX W/COLLJ SPEC WHEN PFRMD 06/14/2014 Colonoscopy COLONOSCOPY FLX DX W/COLLJ SPEC WHEN PFRMD 06/08/2019 [facility] EXCISION GANGLION WRIST DORSAL/VOLAR PRIMARY right HYSTERECTOMY 01/13/2018 Total [facility] PAST SURGICAL HISTORY OF 11/11/2017 Hysteroscopy D&C, Partial removal of submucosal fibroid SALPINGECTOMY Bilateral 01/13/2018 B/L [facility] STEREOTACTIC LOCALIZATION BREAST BIOPSY Left 09/08/2005 Dr. Leon TONSILLECTOMY & ADENOIDECTOMY <AGE 11 FAMILY HISTORY Problem Relation Age of Onset Cancer Mother lung SOCIAL HISTORY Social History Tobacco Use Smoking status: Former Packs/day: 0.30 Types: Cigarettes Quit date: 09/10/2014 Years since quittin.7 Smokeless tobacco: Never Tobacco comments: 06/07/2019 states 4 cigs per day Vaping Use Vaping Use: Never used Substance Use Topics Alcohol use: Yes Alcohol/week: 10.0 standard drinks Types: 4 Mixed Drinks per week Comment: 1 mixed drink per night Drug use: No REVIEW OF SYSTEMS Abdomen: No abdominal pain, nausea, vomiting, diarrhea, or constipation. No bloating, early satiety, indigestion, or increased flatulence. Bladder: No dysuria, gross hematuria, urinary frequency, urinary urgency, or incontinence Breast: No breast lumps, nipple d/c, overlying skin changes, redness or skin retraction Allergies and current medication updated:Yes EXAM: BP 106/74 Ht 5' 6.34 (1.69m) Wt 214 lb 3.2 oz (97.2kg) LMP 11/18/2015 BMI 34.22 kg/(m^2). GENERAL: pleasant, female in no apparent distress HEENT: Normocephalic, atraumatic, mucus membranes moist, and no lesions NECK: Supple, full range of motion, no adenopathy, and thyroid normal DERMATOLOGY: Normal, without lesions, non-icteric, and non-hirsute BREAST: soft, non-tender, symmetric, no dominant mass, normal nipple-areolar complex, no lymphadenopathy, and no nipple discharge ABDOMEN: soft, non-tender, and no masses PELVIC: external genitalia normal, normal Bartholin's glands, urethra, [place]'s glands, no vulvar lesions, good vaginal support, physiologic discharge present, normal appearing perineal body and perianal region, cervix surgically absent BIMANUAL: no adnexal masses, non-tender, and uterus surgically absent RECTOVAGINAL: deferred. NEURO: alert and oriented x3,exam grossly non-focal EXTREMITIES: normal ASSESSMENT/PLAN: 1) Health maintenance: Pap/HPV screening no longer needed Mammogram ordered Mammogram up to date Nutrition, exercise and routine health maintenance exams reviewed. Calcium/Vitamin D supplementation information provided. Colon cancer screening: up to date with screening 2) Follow up one year or sooner as needed Linda Catalan MD documented in this encounter [facility] 11-21-2021 Miscellaneous Notes November 21, 2021 PID: [id number] Tata Julien [address] [place] [id number] Dear Ms. Julien, We are pleased to inform you that the results of your recent breast imaging exam on 11/21/2021 are normal. Early detection of cancer is very important. We also understand recommendations regarding breast cancer screening are controversial. Please discuss with your primary care provider which strategy is best for you and whether a mammogram is right for you. Your imaging studies and report will be kept on file at [facility] as part of your permanent medical record and are available for your continuing care. Thank you for allowing us to help in meeting your health care needs. Sincerely, Dr. House Interpreting Radiologist [facility] (Normal over 40) documented in this encounter [facility] 11-21-2021 History of Presen t illness Narrative Radiology Service Progress Note PATIENT NAME: Tata Julien DATE OF SERVICE: November 21, 2021 TIME: 8:12 AM PATIENT IDENTITY VERIFICATION COMPLETED USING TWO (2) IDENTIFIERS: Name and Date of confirmed by patient verbally. FALL SCREENING: Has the patient had 2 falls in the last year or 1 fall with injury or currently using an Ambulatory Assistive Device (Walker, Cane, Wheelchair, Crutches, etc.)? No PATIENT GENDER DATA: Female. status: : No status: NO. PATIENT RELEVANT IMPLANT DATA REVIEWED: Not Applicable RADIOLOGY DEPARTMENT: Mammography PERIPHERAL IV DATA: Not applicable SIGNED BY: Darrell Michel November 21, 2021 8:12 AM documented in this encounter [facility] 06-20-2021 History of Presen t illness Narrative Tata is a 56 year old who presents for an annual gynecologic exam without complaints. with stroke last year- doing well. Working for [employer]. Enjoys [employer]. Postmenopausal: Yes HRT use: No. Last Pap: 06/30/2016 normal HPV: 06/26/2016 negative History of abnormal pap: No Last mammogram: 2020 normal History of abnormal mammogram: No Sexually active: Yes History of STDS: None Patient concerns for STD exposure: No. Pain with intercourse: No Postcoital bleeding: No Hot flashes: yes Night sweats: Yes Vaginal dryness: No Exercise: walking Diet: balanced OB History T0 L0 SAB0 IAB0 Ectopic0 Multiple0 Live Births0 [employer]ist History LMP: 11/18/2015, Hysterectomy Age at Menarche: Age at First : Age at Menopause: [employer] Specialist History Comments: Sexual Activity: Yes; Male; hysterectomy Contraception: None, Surgical PAST MEDICAL HISTORY Diagnosis Date Elevated cholesterol Emphysema lung (HCC) 02/07/2019 mild Fibroid uterus Post-menopausal bleeding Simple endometrial hyperplasia without atypia Snoring PAST SURGICAL HISTORY Procedure Laterality Date COLONOSCOPY FLX DX W/COLLJ SPEC WHEN PFRMD 06/14/2014 Colonoscopy COLONOSCOPY FLX DX W/COLLJ SPEC WHEN PFRMD 06/08/2019 [facility] EXCISION GANGLION WRIST DORSAL/VOLAR PRIMARY right HYSTERECTOMY 01/13/2018 [facility] PAST SURGICAL HISTORY OF 11/11/2017 Hysteroscopy D&C, Partial removal of submucosal fibroid SALPINGECTOMY Bilateral 01/13/2018 B[facility]L [facility] STEREOTACTIC LOCALIZATION BREAST BIOPSY Left 09/08/2005 Dr. Leon TONSILLECTOMY & ADENOIDECTOMY <AGE 11 FAMILY HISTORY Problem Relation Age of Onset Cancer Mother lung SOCIAL HISTORY Social History Tobacco Use Smoking status: Former Smoker Packs/day: 0.30 Types: Cigarettes Quit date: 09/10/2014 Years since quittin.7 Smokeless tobacco: Never Used Tobacco comment: 06/07/2019 states 4 cigs per day Vaping Use Vaping Use: Never used Substance Use Topics Alcohol use: Yes Alcohol/week: 10.0 standard drinks Types: 4 Mixed Drinks per week Comment: 1 mixed drink per night Drug use: No REVIEW OF SYSTEMS Abdomen: No abdominal pain, nausea, vomiting, diarrhea, or constipation. No bloating, early satiety, indigestion, or increased flatulence. Bladder: No dysuria, gross hematuria, urinary frequency, urinary urgency, or incontinence Breast: No breast lumps, nipple d/c, overlying skin changes, redness or skin retraction Allergies and current medication updated:Yes EXAM: BP 136/84 Ht 5' 6.339 (1.69m) Wt 216 lb (98.0kg) LMP 11/18/2015 BMI 34.51 kg/(m^2). GENERAL: pleasant, female in no apparent distress HEENT: Normocephalic, atraumatic, mucus membranes moist and no lesions NECK: Supple, full range of motion, no adenopathy and thyroid normal DERMATOLOGY: Normal, without lesions, non-icteric and non-hirsute BREAST: soft, non-tender, symmetric, no dominant mass, normal nipple-areolar complex, no lymphadenopathy and no nipple discharge ABDOMEN: soft, non-tender and no masses PELVIC: external genitalia normal, normal Bartholin's glands, urethra, [place]'s glands, no vulvar lesions, cervix surgically absent. good vaginal support, physiologic discharge present, normal appearing perineal body and perianal region BIMANUAL: no adnexal masses, non-tender and uterus surgically absent RECTOVAGINAL: deferred. NEURO: alert and oriented x3,exam grossly non-focal EXTREMITIES: normal ASSESSMENT/PLAN: 1) Health maintenance: Pap/HPV screening no longer needed Mammogram ordered Mammogram up to date Nutrition, exercise and routine health maintenance exams reviewed. Calcium/Vitamin D supplementation information provided. Colon cancer screening: up to date with screening 2) Follow up one year or sooner as needed Linda Catalan MD Sort Line Worker offered: Patient declines. documented in this encounter [facility] documented as of this encounter (statuses as of 06/20/2021) [facility] [facility] of Past illness Narrative* Problem Noted Date Resolved Date Special screening for malignant neoplasms, colon 06/14/2014 06/14/2014 FIBROADENOMA OF BREAST 09/17/2005 2 ABNORMAL MAMMOGRAM( other abnormal finding) 07/2901/07/2012 documented as of this encounter (statuses as of 11/22/2021) [facility] History of Past illness Narrative* Problem Noted Date Resolved Date Special screening for malignant neoplasms, colon 06/14/2014 06/14/2014 FIBROADENOMA OF BREAST 09/17/2005 2 ABNORMAL MAMMOGRAM( other abnormal finding) 07/2901/07/2012 documented as of this encounter (statuses as of 11/25/2021) [facility] History of Past illness Narrative* Problem Noted Date Resolved Date Special screening for malignant neoplasms, colon 06/14/2014 06/14/2014 FIBROADENOMA OF BREAST 09/17/2005 2 ABNORMAL MAMMOGRAM( other abnormal finding) 07/2901/07/2012 documented as of this encounter (statuses as of 06/23/2022) [facility] History of Past illness Narrative* Problem Noted Date Diagnosed Date Resolved Date Special screening for malign ant neoplasms, colon 06/14/2014 06/14/2014 FIBROADENOMA OF BREAST 09/17/200501/06 ABNORMAL MAMMOGRAM( other abnormal finding) 08/25/2005 01/07/2012 documented as of this encounter (statuses as of 11/26/2022) [facility] History of Past illness Narrative* Problem Noted Date Diagnosed Date Resolved Date Special screening for malign ant neoplasms, colon 06/14/2014 06/14/2014 FIBROADENOMA OF BREAST 09/17/200501/06 ABNORMAL MAMMOGRAM( other abnormal finding) 08/25/2005 01/07/2012 documented as of this encounter (statuses as of 01/31/2023) [facility] Diagnosis Encounter for gynecological examination (general) (routine) without abnormal findings- Primary Encounter for screening mammogram for malignant neoplasm of breast Other screening mammogram [facility] Diagnosis Encounter for screening mammogram for malignant neoplasm of breast Other screening mammogram [facility] Diagnosis Encounter for gynecological examination without abnormal finding- Primary Routine gynecological examination Encounter for screening for malignant neoplasm of cervix Screening for malignant neoplasm of the cervix Special screening examination for human papillomavirus (HPV) Encounter for screening mammogram for malignant neoplasm of breast Other screening mammogram [facility] Diagnosis Encounter for screening mammogram for malignant neoplasm of breast Other screening mammogram documented in this encounter [facility] for referral (narrative)* Diagnostic Procedure Only (Routine) - Pending Review Specialty Diagnoses / Procedures Referred By Conttuyet t Referred To Contact [facility] Diagnoses Encounter for screening mammogram for malignant neoplasm of breast Procedures JOB SCREENING W ESSIE SCREENING DIGITAL BREAST TOMOSYNTHESIS BI SCREENING MAMMOGRAPHY BI 2-VIEW BREAST INC Linda Roldan MD [address] [place] [address] [facility] [address] [place] [address] Referral ID Status Reason Start Date Expiration Date Visits Requested Visits Authorized [id number] Pending Review Auto-Generat ed Referral 06/20/2021 07/20/2022 1 1 T [facility] for referral (narrative)* Diagnostic Procedure Only (Routine) - Closed Specialty Diagnoses / Procedures Referred By Contac t Referred To Contact [facility] Diagnoses Encounter for screening mammogram for malignant neoplasm of breast Procedures JOB SCREENING W ESSIE SCREENING DIGITAL BREAST TOMOSYNTHESIS BI SCREENING MAMMOGRAPHY BI 2-VIEW BREAST INC CAD Linda Arredondo MD [address] [place] [address] [facility] [address] [phone] Referral ID Status Reason Start Date Expiration Date V isits Requested Visits Authorized [id number] Closed Auto-Generate d Referral 06/20/2021 07/20/2022 1 1 [facility] for referral (narrative)* Diagnostic Procedure Only (Routine) - Pending Review Specialty Diagnoses / Procedures Referred By Conttuyet t Referred To Contact [facility] Diagnoses Encounter for screening mammogram for malignant neoplasm of breast Procedures JOB SCREENING W ESSIE SCREENING DIGITAL BREAST TOMOSYNTHESIS BI SCREENING MAMMOGRAPHY BI 2-VIEW BREAST INC CAD Linda Arreodndo MD [address] [place] [address] [facility] [address] [place] [address] Referral ID Status Reason Start Date Expiration Date Visits Requested Visits Authorized [id number] Pending Review Auto-Generat ed Referral 06/23/2022 07/23/2023 1 1 [facility] for referral (narrative)* Diagnostic Procedure Only (Routine) - Closed Specialty Diagnoses / Procedures Referred By Raiza martinez Referred To Contact [facility] Diagnoses Encounter for screening mammogram for malignant neoplasm of breast Procedures JOB SCREENING W ESSIE SCREENING DIGITAL BREAST TOMOSYNTHESIS BI SCREENING MAMMOGRAPHY BI 2-VIEW BREAST INC CAD Linda Arredondo MD [address] [place] [address] [facility] [address] [place] [phone] Referral ID Status Reason Start Date Expiration Date V isits Requested Visits Authorized [id number] Closed Auto-Generate d Referral 06/23/2022 07/23/2023 1 1 [facility] for visit Narrative* Diagnostic Procedure Only (Routine) - Closed Specialty Diagnoses / Procedures Referred By Raiza martinez Referred To Contact [facility] Diagnoses Encounter for screening mammogram for malignant neoplasm of breast Procedures JOB SCREENING W ESSIE SCREENING DIGITAL BREAST TOMOSYNTHESIS BI SCREENING MAMMOGRAPHY BI 2-VIEW BREAST INC CAD Linda Arrdeondo MD [address] [place] [address] [facility] [address] [address] Referral ID Status Reason Start Date Expiration Date V isits Requested Visits Authorized [id number] Closed Auto-Generate d Referral 06/23/2022 07/23/2023 1 1 [facility] Advance Directives Documents on File Type Date 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 Advance Directive(s) 06/08/2019 6:21 AM Advance Directive(s) 05/08/2019 4:16 PM Summary Purpose Family History No Family History Records Found Additional Source Comments Source Comments (unrecognize d section and content) In the event this informatio n is protected by the Federal Confidentiality of Alcohol and Drug Abuse Patient Records regulations: The Federal rules restrict any use of the information to criminally investigate or prosecute any alcohol or drug abuse patient.[facility] the event this information is protected by the Federal Confidentiality of Alcohol and Drug Abuse Patient Records regulations: The Federal rules restrict any use of the information to criminally investigate or prosecute any alcohol or drug abuse patient.[facility] the event this information is protected by the Federal Confidentiality of Alcohol and Drug Abuse Patient Records regulations: The Federal rules restrict any use of the information to criminally investigate or prosecute any alcohol or drug abuse patient.[facility] the event this information is protected by the Federal Confidentiality of Alcohol and Drug Abuse Patient Records regulations: The Federal rules restrict any use of the information to criminally investigate or prosecute any alcohol or drug abuse patient.[facility] the event this information is protected by the Federal Confidentiality of Alcohol and Drug Abuse Patient Records regulations: The Federal rules restrict any use of the information to criminally investigate or prosecute any alcohol or drug abuse patient.[facility] the event this information is protected by the Federal Confidentiality of Alcohol and Drug Abuse Patient Records regulations: The Federal rules restrict any use of the information to criminally investigate or prosecute any alcohol or drug abuse patient.[facility] Reason for Visit (unrecogniz ed section and content) Reason Comments Radiology Mammogram Specialty Diagnoses / Procedures Referred By Contac t Referred To Contact [facility] Diagnoses Encounter for screening mammogram for malignant neoplasm of breast Procedures JOB SCREENING W ESSIE SCREENING DIGITAL BREAST TOMOSYNTHESIS BI SCREENING MAMMOGRAPHY BI 2-VIEW BREAST INC CAD Linda Arredondo MD [address] [place] [address] [facility] [address] [place] [phone] Referral ID Status Reason Start Date Expiration Date V isits Requested Visits Authorized [id number] Closed Auto-Generate d Referral 06/20/2021 07/20/2022 1 1 Reason Onset Date Comments Yearly Exam 06/23/2022 Care Teams (unrecognized sec tion and content) Student Liaison Officer Relationship Specialty Start Date End Date Teo Briones Jr., MD PCP - General Internal Medicine 12/21/13 Student Liaison Officer Relationship Specialty Start Date End Date Teo Briones Jr., MD PCP - General Internal Medicine 12/21/13 Student Liaison Officer Relationship Specialty Start Date End Date Teo Briones Jr., MD PCP - General Internal Medicine 12/21/13 Student Liaison Officer Relationship Specialty Start Date End Date Teo Briones Jr., MD PCP - General Internal Medicine 12/21/13 Student Liaison Officer Relationship Specialty Start Date End Date Teo Briones Jr., MD PCP - General Internal Medicine 12/21/13 INFORMATION SOURCE (unrecogn ized section and content) FOR RECORDS PERTAINING TO PATIENTS WHO ARE OR HAVE BEEN ENROLLED IN A CHEMICAL DEPENDENCY/SUBSTANCEABUSE PROGRAM, SOME INFORMATION MAY BE OMITTED. This clinical summary was aggregated from multiple sources. Caution should be exercised in using it in the provision of clinical care. This summary normalizes information from multiple sources, and as a consequence, information in this document may materially change the coding, format and clinical context of patient data. In addition, data may be omitted in some cases. CLINICAL DECISIONS SHOULD BE BASED ON THE PRIMARY CLINICAL RECORDS. [employer] provides no warranty or guarantee of the accuracy or completeness of information in this document.
== END | disposition home or self-care (01) ==
LOC: CT 15:05
PROVIDERS: PCP Nurse Practitioner Family; Referring Provider Nurse Practitioner Family; Visit Provider Nurse Practitioner Family
DX: Z12.2 Encounter for screening for malignant neoplasm of respiratory organs (principal); Z87.891 Personal history of nicotine dependence
CPT/HCPCS: 71271

== ENCOUNTER → 2023-05-05 | Outpatient (CLI) | payer OTHER, SELFPAY ==
--- NOTE | 2023-05-05 17:03 | US_ITS ---
STUDY: RENAL ULTRASOUND - COMPLETE REASON FOR EXAM: Female, 58 years old. HEMATURIA TECHNIQUE: Ultrasound evaluation of the kidneys was performed with real-time and static dawson-scale imaging. COMPARISON: None. FINDINGS: RIGHT KIDNEY: Normal location of the right kidney, which is normal in size. The right kidney measures 10.9 x 5.3 x 6.0 cm. There is a normal cortex of the right kidney. The renal cortex measures 1.3 cm. There is no right renal mass or cyst. There are no right renal calculi. There is no right hydronephrosis. DISTAL RIGHT URETER: There is non-visualization of the distal right ureter. There is no demonstrated right ureterovesical junction calculus. There is no demonstrated right ureteral jet. LEFT KIDNEY: Normal location of the left kidney, which is normal in size. The left kidney measures 11.6 x 5.6 x 5.5 cm. There is a normal cortex of the left kidney. The renal cortex measures 1.8 cm. There is no left renal mass or cyst. There are no left renal calculi. There is no left hydronephrosis. DISTAL LEFT URETER: There is non-visualization of the distal left ureter. There is no demonstrated left ureterovesical junction calculus. There is no demonstrated left ureteral jet. BLADDER: The distended urinary bladder has a volume of 371 ml. The empty urinary bladder has a volume of 41 ml. There is a normal wall thickness of the distended urinary bladder. 4.2 x 4.0 x 4.2 cm mass seen in the bladder. This needs to be evaluated with cystoscopy. US/Kidney and Bladder IMPRESSION: Normal ultrasound of the kidneys. 4.2 cm mass within the bladder needs further evaluation. Electronically Signed: Byron Cardenas MD at 22:32 EST ,
--- OUTSIDE RECORDS SUMMARY | 2023-05-05 19:16 | XMS RPT_ITS | CCD ---
Author Name Unknown Address [address] [place] [address] Organization [facility] Care Team Providers Care Podiatric Medicine Doctor Name Role Phone Teo Briones Jr. Primary [...] 168.5 cm Linda Vila MD Work Phone: [facility] 06-23-2022 08:33-0400 Body weight 97.16 kg Linda Vila MD Work Phone: [facility] 06-23-2022 08:33-0400 Diastolic blood pressure 74 mm[Hg] Linda Vila MD Work Phone: [facility] 06-23-2022 08:33-0400 Systolic blood pressure 106 mm[Hg] Linda Vila MD Work Phone: [facility] 06-20-2021 08:41-0400 Body height 168.5 cm Linda Vila MD Work Phone: [facility] 06-20-2021 08:41-0400 Body weight 97.98 kg Linda Vila MD Work Phone: [facility] 06-20-2021 08:41-0400 Diastolic blood pressure 84 mm[Hg] Linda Vila MD Work Phone: [facility] 06-20-2021 08:41-0400 Systolic blood pressure 136 mm[Hg] Linda Vila MD Work Phone: [facility] Encounters Encounter Date Encounter Type Care Provider Facility Start: 11-24-2022 Documentation procedure Mammog matheus Coordinator [facility] Start: 11-24-2022 Letter encounter Mammography Coordinator [facility] Department Start: 11-24-2022 End: 11-24-2022 ambulatory TEO BRIONES JR Facility:[facility] Start: 11-24-2022 End: 11-24-2022 Subsequent hospital visit by physician Screen Mammo [facility] Mammogram Procedures Date Procedure Procedure Detail [...] Activity Detail Author Start: 06-07-2024 Colonoscopy COLONOSCOPY [facility] Start: 06-07-2024 COLORECTAL CANCER SCREENING COLORECTAL CANCER SCREENING [facility] Start: 11-25-2023 Mammography [facility] Start: 11-27-2022 Covid-19 Vaccine () Covid-19 Vaccine () [facility] Start: 11-27-2022 Influenza vaccination [facility] Start: 11-21-2022 Mammography MAMMOGRAM [facility] Start: 03-29-2022 DEPRESSION ASSESSMENT DEPRESSION ASSESSMENT [facility] Start: 11-27-2021 Influenza vaccination INFLUENZA (#1) [facility] Start: 11-18-2021 Mammography MAMMOGRAM [facility] Start: 06-24-2021 HPV TESTING HPV TESTING [facility] Start: 06-24-2021 PAP TESTING PAP TESTING [facility] Start: 06-01-2021 COVID-19 VACCINE (4 - Booster for Pfizer series) COVID-19 VACCINE (4 - Booster for Pfizer series) [facility] Start: 11-27-2020 Influenza vaccination INFLUENZA (#1) [facility] Start: 12-25-2019 Lipid 1996 panel - Serum or Plasma Lipid Screening [facility] Start: 12-25-2019 LIPID SCREEN LIPID SCREEN [facility] Start: 12-24-2017 DIABETES SCREEN DIABETES SCREEN [facility] Start: 12-24-2017 Diabetes Screening Diabetes Screening [facility] Start: 01-29-2014 SHINGRIX VACCINE (1 of 2) SHINGRIX VACCINE (1 of 2) [facility] Start: 01-29-2009 COLOGUARD (FIT-DNA) COLOGUARD (FIT-DNA) [facility] Start: 01-29-[address] COLONOGRAPHY [facility] Start: 01-29-2009 FECAL OCCULT BLOOD FECAL OCCULT BLOOD [facility] Start: 01-29-2009 SIGMOIDOSCOPY SIGMOIDOSCOPY [facility] Start: 01-29-1983 Urine microalbumin profile [facility] Start: 01-29-1982 HEPATITIS C SCREENING HEPATITIS C SCREENING [facility] Start: 01-29-1982 HIV SCREENING HIV SCREENING [facility] Start: 1976 Adult depression screening assessment DEPRESSION SCREENING [facility] Start: 1965 HEPATITIS B (1 of 3 - 3-dose series) HEPATITIS B (1 of 3 - 3-dose series) [facility] Start: 1965 Hepatitis B Vaccine (1 of 3 - 3-dose series) Hepatitis B Vaccine (1 of 3 - 3-dose series) [facility] End: 07-20-2022 JOB SCREENING W ESSIE JOB SCREENING W ESSIE Radiology Routine Encounter for screening mammogram for malignant neoplasm of breast 1 Occurrences starting 06/20/2021 until 07/20/2022 [facility] Work Phone: Payers Date Payer Category Payer Unknown MMO MMO [employer] [id number] 2018-Present [phone] [address] [place] [address] PPO [id number] 2018 Unknown [id number] 2018 Unknown [id number] Social History Date Type Detail Facility Start: 06-19-2020 End: 06-23-2022 Tobacco smoking status NHIS Ex-smoker [facility] End: 09-10-2014 History of tobacco use Current smoker [facility] End: 09-10-2014 History of tobacco use Cigarette Smoker [facility] Start: 06-19-2020 End: 11-24-2022 Cigarettes smoked current (pack per day) - Reported 0.3 [facility] Start: 06-19-2020 End: 06-23-2022 Tobacco use and exposure Smokeless tobacco non-user [facility] Start: 06-20-2021 End: 06-23-2022 Alcohol intake Current drinker of alcohol (finding) [facility] Start: 06-08-2019 History SDOH Alcohol Comment 1 mixed drink per night [facility] Start: 06-08-2019 End: 06-23-2022 Tobacco Comment 06/07/2019 states 4 cigs per day [facility] Start: 1965 Sex Assigned At Female C [facility] Start: 10-21-2021 End: 10-31-2021 Exposure to SARS-CoV-2 (event) Not sure [facility] Start: 06-23-2022 End: 11-24-2022 Tobacco use panel [facility] National Score (1-10 0), lower number is lower risk 65 [facility] Start: 06-15-2020 Gender identity Identifies as female gender (finding) [facility] Start: 06-15-2020 Sexual orientation Heterosexual (fin ding) [facility] Clinical Notes 06-14-2014 to 11-24-2022 Letter - Coordinator, Mammography - 11/24/2022 10:01 AM EDTBMargaret thomas Mammo Tech - 11/24/2022 7:50 AM EDTDemahamed Vila MD - 06/23/2022 8:38 AM EDT Note Date & Type Note Facility 11-24-2022 Miscellaneous Notes November 24, 2022 PID: [id number] Tata Julien [address] [place] [address] Dear Ms. Julien, We are pleased to [...] report will be kept on file at [facility] as part of your permanent medical record and are available for your continuing care. Thank you for allowing us to help in meeting your health care needs. Sincerely, Dr. Reddy Interpreting Radiologist [facility] (Normal over 40) documented in this encounter [facility] 11-24-2022 Note HNO ID: [id number] Author: Margaret Jovel Mammo Tech Service: ? Author Type: Applications Trainer Type: Progress Notes Filed: 11/24/2022 8:09 AM [...] IV DATA: Not applicable SIGNED BY: Loni NevarezPrimordial Genetics November 24, 2022 7:49 AM [facility] 11-24-2022 History of Presen t illness Narrative [...] DATA: Not applicable SIGNED BY: Margaret Jovel [employer] November 24, 2022 7:49 AM documented in this encounter [facility] 06-23-2022 Note HNO ID: [id number] Author: Linda Vila MD Service: ? 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, Hysterectomy Age at Menarche: Age at First : Age at Menopause: Cross Country Coach History Comments: Sexual Activity: Yes; Male; hysterectomy Contraception: None, Surgical PAST MEDICAL HISTORY Diagnosis Date Elevated cholesterol Emphysema lung (HCC) 02/07/2019 mild Fibroid uterus Post-menopausal bleeding Simple endometrial hyperplasia without atypia Snoring PAST SURGICAL HISTORY Procedure Laterality Date COLONOSCOPY FLX DX W/COLLJ SPEC WHEN PFRMD 06/14/2014 Colonoscopy COLONOSCOPY FLX DX W/COLLJ SPEC WHEN PFRMD 06/08/2019 [facility] EXCISION GANGLION WRIST DORSAL/VOLAR PRIMARY right HYSTERECTOMY 01/13/2018 [facility] PAST SURGICAL HISTORY OF 11/11/2017 Hysteroscopy DANDC, Partial removal of submucosal fibroid SALPINGECTOMY Bilateral 01/13/2018 B[facility]L [facility] STEREOTACTIC LOCALIZATION BREAST BIOPSY [...] external genitalia normal, normal Bartholin's glands, urethra, Pascola's glands, no vulvar lesions, good vaginal support, [...] or sooner as needed Linda Catalan MD [facility] 06-23-2022 History of Presen t illness Narrative Tata is a 57 year old who presents for an annual gynecologic exam without complaints. Working [employer]. Loves to [place]. Postmenopausal: Yes HRT use: No. 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, Hysterectomy Age at Menarche: Age at First : Age at Menopause: Cross Country Coach History Comments: Sexual Activity: Yes; Male; hysterectomy Contraception: None, Surgical PAST MEDICAL HISTORY Diagnosis Date Elevated cholesterol Emphysema lung (HCC) 02/07/2019 mild Fibroid uterus Post-menopausal bleeding Simple endometrial hyperplasia without atypia Snoring PAST SURGICAL HISTORY Procedure Laterality Date COLONOSCOPY FLX DX W/COLLJ SPEC WHEN PFRMD 06/14/2014 Colonoscopy COLONOSCOPY FLX DX W/COLLJ SPEC WHEN PFRMD 06/08/2019 [facility] EXCISION GANGLION WRIST DORSAL/VOLAR PRIMARY right HYSTERECTOMY 01/13/2018 Total [facility] PAST SURGICAL HISTORY OF 11/11/2017 Hysteroscopy D&C, Partial removal of submucosal fibroid SALPINGECTOMY Bilateral 01/13/2018 B[facility]L [facility] STEREOTACTIC LOCALIZATION BREAST BIOPSY Left 09/08/2005 [...] external genitalia normal, normal Bartholin's glands, urethra, Pascola's glands, no vulvar lesions, good vaginal support, [...] Linda Catalan MD documented in this encounter [facility] 11-21-2021 Miscellaneous Notes November 21, 2021 PID: [id number] Tata Julien [address] [place] [id number] Dear Ms. Julien, We are pleased to [...] report will be kept on file at [facility] as part of your permanent medical record and are available for your continuing care. Thank you for allowing us to help in meeting your health care needs. Sincerely, Dr. House Interpreting Radiologist [facility] (Normal over 40) documented in this encounter [facility] 11-21-2021 History of Presen t illness Narrative [...] 2021 8:12 AM documented in this encounter [facility] 06-20-2021 History of Presen t illness Narrative Tata is a 56 year old who presents for an annual gynecologic exam without complaints. with stroke last year- doing well. Working for [employer]. Enjoys [employer]. Postmenopausal: Yes HRT use: No. 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, Hysterectomy Age at Menarche: Age at First : Age at Menopause: Cross Country Coach History Comments: Sexual Activity: Yes; Male; hysterectomy Contraception: None, Surgical PAST MEDICAL HISTORY Diagnosis Date Elevated cholesterol Emphysema lung (HCC) 02/07/2019 mild Fibroid uterus Post-menopausal bleeding Simple endometrial hyperplasia without atypia Snoring PAST SURGICAL HISTORY Procedure Laterality Date COLONOSCOPY FLX DX W/COLLJ SPEC WHEN PFRMD 06/14/2014 Colonoscopy COLONOSCOPY FLX DX W/COLLJ SPEC WHEN PFRMD 06/08/2019 [facility] EXCISION GANGLION WRIST DORSAL/VOLAR PRIMARY right HYSTERECTOMY 01/13/2018 [facility] PAST SURGICAL HISTORY OF 11/11/2017 Hysteroscopy D&C, Partial removal of submucosal fibroid SALPINGECTOMY Bilateral 01/13/2018 B[facility] STEREOTACTIC LOCALIZATION BREAST BIOPSY [...] external genitalia normal, normal Bartholin's glands, urethra, Pascola's glands, no vulvar lesions, cervix surgically absent. [...] or sooner as needed Linda Catalan MD Block Bolter Mule Operator offered: Patient declines. documented in this encounter [facility] documented as of this encounter (statuses as of 06/20/2021) [facility]03-19-2015 History of Past illness Narrative* Problem Noted Date Resolved Date Special screening for malignant neoplasms, colon 06/14/2014 06/14/2014 FIBROADENOMA OF BREAST 09/17/2005 2 ABNORMAL MAMMOGRAM( other abnormal finding) 07/2901/07/2012 documented as of this encounter (statuses as of 11/22/2021) [facility] History of Past illness Narrative* Problem Noted Date Resolved Date Special screening for malignant neoplasms, colon 06/14/2014 06/14/2014 FIBROADENOMA OF BREAST 09/17/2005 2 ABNORMAL MAMMOGRAM( other abnormal finding) 07/2901/07/2012 documented as of this encounter (statuses as of 11/25/2021) [facility] History of Past illness Narrative* Problem Noted Date Resolved Date Special screening for malignant neoplasms, colon 06/14/2014 06/14/2014 FIBROADENOMA OF BREAST 09/17/2005 2 ABNORMAL MAMMOGRAM( other abnormal finding) 07/2901/07/2012 documented as of this encounter (statuses as of 06/23/2022) [facility] History of Past illness Narrative* Problem Noted Date Diagnosed Date Resolved Date Special screening for malign ant neoplasms, colon 06/14/2014 06/14/2014 FIBROADENOMA OF BREAST 09/17/200501/06 ABNORMAL MAMMOGRAM( other abnormal finding) 08/25/2005 01/07/2012 documented as of this encounter (statuses as of 11/26/2022) [facility] History of Past illness Narrative* Problem Noted Date Diagnosed Date Resolved Date Special screening for malign ant neoplasms, colon 06/14/2014 06/14/2014 FIBROADENOMA OF BREAST 09/17/200501/06 ABNORMAL MAMMOGRAM( other abnormal finding) 08/25/2005 01/07/2012 documented as of this encounter (statuses as of 01/31/2023) [facility] Diagnosis Encounter for gynecological examination (general) (routine) without abnormal findings- Primary Encounter for screening mammogram for malignant neoplasm of breast Other screening mammogram [facility] Diagnosis Encounter for screening mammogram for malignant neoplasm of breast Other screening mammogram [facility] Diagnosis Encounter for gynecological examination without abnormal finding- Primary Routine gynecological examination Encounter for screening for malignant neoplasm of cervix Screening for malignant neoplasm of the cervix Special screening examination for human papillomavirus (HPV) Encounter for screening mammogram for malignant neoplasm of breast Other screening mammogram [facility] Diagnosis Encounter for screening mammogram for malignant neoplasm of breast Other screening mammogram documented in this encounter [facility] for referral (narrative)* Diagnostic Procedure Only (Routine) - Pending Review Specialty Diagnoses / Procedures Referred By Conttuyet t Referred To Contact [facility] Diagnoses Encounter for screening mammogram for malignant neoplasm of breast Procedures JOB SCREENING W ESSIE SCREENING DIGITAL BREAST TOMOSYNTHESIS BI SCREENING MAMMOGRAPHY BI 2-VIEW BREAST INC Linda Roldan MD [address] [place] [address] [facility] [address] [place] [address] Referral ID Status Reason Start Date Expiration Date Visits Requested Visits Authorized [id number] Pending Review Auto-Generat ed Referral 06/20/2021 07/20/2022 1 1 T [facility] for referral (narrative)* Diagnostic Procedure Only (Routine) - Closed Specialty Diagnoses / Procedures Referred By Contac t Referred To Contact [facility] Diagnoses Encounter for screening mammogram for malignant neoplasm of breast Procedures JOB SCREENING W ESSIE SCREENING DIGITAL BREAST TOMOSYNTHESIS BI SCREENING MAMMOGRAPHY BI 2-VIEW BREAST INC CAD Linda Arredondo MD [address] [place] [address] [facility] [address] [place] [place] [phone] Referral ID Status Reason Start Date Expiration Date V isits Requested Visits Authorized [id number] Closed Auto-Generate d Referral 06/20/2021 07/20/2022 1 1 [facility] for referral (narrative)* Diagnostic Procedure Only (Routine) - Pending Review Specialty Diagnoses / Procedures Referred By Conttuyet t Referred To Contact [facility] Diagnoses Encounter for screening mammogram for malignant neoplasm of breast Procedures JOB SCREENING W ESSIE SCREENING DIGITAL BREAST TOMOSYNTHESIS BI SCREENING MAMMOGRAPHY BI 2-VIEW BREAST INC CAD Linda Arredondo MD [address] [place] [address] [facility] [address] [place] [address] Referral ID Status Reason Start Date Expiration Date Visits Requested Visits Authorized [id number] Pending Review Auto-Generat ed Referral 06/23/2022 07/23/2023 1 1 [facility] for referral (narrative)* Diagnostic Procedure Only (Routine) - Closed Specialty Diagnoses / Procedures Referred By Raiza martinez Referred To Contact [facility] Diagnoses Encounter for screening mammogram for malignant neoplasm of breast Procedures JOB SCREENING W ESSIE SCREENING DIGITAL BREAST TOMOSYNTHESIS BI SCREENING MAMMOGRAPHY BI 2-VIEW BREAST INC CAD Linda Arredondo MD [address] [place] [address] [facility] [address] [place] [phone] Referral ID Status Reason Start Date Expiration Date V isits Requested Visits Authorized [id number] Closed Auto-Generate d Referral 06/23/2022 07/23/2023 1 1 [facility] for visit Narrative* Diagnostic Procedure Only (Routine) - Closed Specialty Diagnoses / Procedures Referred By Raiza martinez Referred To Contact [facility] Diagnoses Encounter for screening mammogram for malignant neoplasm of breast Procedures JOB SCREENING W ESSIE SCREENING DIGITAL BREAST TOMOSYNTHESIS BI SCREENING MAMMOGRAPHY BI 2-VIEW BREAST INC CAD Linda Arredondo MD [address] [place] [address] [facility] [address] [place] [address] Referral ID Status Reason Start Date Expiration Date V isits Requested Visits Authorized [id number] Closed Auto-Generate d Referral 06/23/2022 07/23/2023 1 1 [facility] Advance Directives Documents on File Type Date Recorded Patient Shuttle Final Inspector Expl anation Advance Directive(s) 06/08/2019 6:21 AM [...] or prosecute any alcohol or drug abuse patient.[facility] the event this information is protected by the Federal Confidentiality of Alcohol and Drug Abuse Patient Records regulations: The Federal rules restrict any use of the information to criminally investigate or prosecute any alcohol or drug abuse patient.[facility] the event this information is protected by the Federal Confidentiality of Alcohol and Drug Abuse Patient Records regulations: The Federal rules restrict any use of the information to criminally investigate or prosecute any alcohol or drug abuse patient.[facility] the event this information is protected by the Federal Confidentiality of Alcohol and Drug Abuse Patient Records regulations: The Federal rules restrict any use of the information to criminally investigate or prosecute any alcohol or drug abuse patient.[facility] Center[facility] the event this information is protected by the Federal Confidentiality of Alcohol and Drug Abuse Patient Records regulations: The Federal rules restrict any use of the information to criminally investigate or prosecute any alcohol or drug abuse patient.[facility] Center[facility] the event this information is protected by the Federal Confidentiality of Alcohol and Drug Abuse Patient Records regulations: The Federal rules restrict any use of the information to criminally investigate or prosecute any alcohol or drug abuse patient.[facility] Reason for Visit (unrecogniz ed section and content) Reason Comments Radiology Mammogram Specialty Diagnoses / Procedures Referred By Contac t Referred To Contact [facility] Diagnoses Encounter for screening mammogram for malignant neoplasm of breast Procedures JOB SCREENING W ESSIE SCREENING DIGITAL BREAST TOMOSYNTHESIS BI SCREENING MAMMOGRAPHY BI 2-VIEW BREAST INC CAD Linda Arredondo MD [address] [place] [address] [facility] [address] [place] [phone] Referral ID Status Reason Start Date Expiration Date V isits Requested Visits Authorized [id number] Closed Auto-Generate d Referral 06/20/2021 07/20/2022 1 1 Reason Onset Date Comments Yearly Exam 06/23/2022 Care Teams (unrecognized sec tion and content) Podiatric Medicine Doctor Relationship Specialty Start Date End Date Teo Briones Jr., MD PCP - General Internal Medicine 12/21/13 Podiatric Medicine Doctor Relationship Specialty Start Date End Date Teo Briones Jr., MD PCP - General Internal Medicine 12/21/13 Podiatric Medicine Doctor Relationship Specialty Start Date End Date Teo Briones Jr., MD PCP - General Internal Medicine 12/21/13 Podiatric Medicine Doctor Relationship Specialty Start Date End Date Teo Briones Jr., MD PCP - General Internal Medicine 12/21/13 Podiatric Medicine Doctor Relationship Specialty Start Date End Date Teo [...] BE BASED ON THE PRIMARY CLINICAL RECORDS. [email or web address] provides no warranty or guarantee of the accuracy or completeness of information in this document.
== END | disposition home or self-care (01) ==
LOC: US 17:00
PROVIDERS: PCP Nurse Practitioner Family; Referring Provider Nurse Practitioner Family; Visit Provider Nurse Practitioner Family
DX: R31.9 Hematuria, unspecified (principal)
CPT/HCPCS: 76770

== ENCOUNTER → 2023-05-05 | Outpatient (CLI) | payer OTHER, SELFPAY ==
[2023-05-05 07:53] LABS: Cytology, Body Fluid / CSF SEE PATHOLOGY REPORT
--- OUTSIDE RECORDS SUMMARY | 2023-05-05 08:10 | XMS RPT_ITS | CCD ---
Author Name Unknown Address [address] [place] [address] Organization [facility] Care Team Providers Care Chief Executive Name Role Phone Teo Briones Jr. Primary Care Provider TEO BRIONES JR Primary Care Unavailable LINDA [...] 168.5 cm Linda Vila MD Work Phone: [facility] 06-23-2022 08:33-0400 Body weight 97.16 kg Linda Vila MD Work Phone: [facility] 06-23-2022 08:33-0400 Diastolic blood pressure 74 mm[Hg] Linda Vila MD Work Phone: [facility] 06-23-2022 08:33-0400 Systolic blood pressure 106 mm[Hg] Linda Vila MD Work Phone: [facility] 06-20-2021 08:41-0400 Body height 168.5 cm Linda Vila MD Work Phone: [facility] 06-20-2021 08:41-0400 Body weight 97.98 kg Linda Vila MD Work Phone: [facility] 06-20-2021 08:41-0400 Diastolic blood pressure 84 mm[Hg] Linda Vila MD Work Phone: [facility] 06-20-2021 08:41-0400 Systolic blood pressure 136 mm[Hg] Linda Vila MD Work Phone: [facility] Encounters Encounter Date Encounter Type Care Provider Facility Start: 11-24-2022 Documentation procedure Mammog matheus Coordinator [facility] Start: 11-24-2022 Letter encounter Mammography Coordinator [facility] Department Start: 11-24-2022 End: 11-24-2022 ambulatory TEO BRIONES JR Facility:[facility] Start: 11-24-2022 End: 11-24-2022 Subsequent hospital visit by physician Screen Mammo On License Of [facility] Mammogram Procedures Date Procedure Procedure Detail [...] Activity Detail Author Start: 06-07-2024 Colonoscopy COLONOSCOPY [facility] Start: 06-07-2024 COLORECTAL CANCER SCREENING COLORECTAL CANCER SCREENING [facility] Start: 11-25-2023 Mammography [facility] Start: 11-27-2022 Covid-19 Vaccine () Covid-19 Vaccine () [facility] Start: 11-27-2022 Influenza vaccination [facility] Start: 11-21-2022 Mammography MAMMOGRAM [facility] Start: 03-29-2022 DEPRESSION ASSESSMENT DEPRESSION ASSESSMENT [facility] Start: 11-27-2021 Influenza vaccination INFLUENZA (#1) [facility] Start: 11-18-2021 Mammography MAMMOGRAM [facility] Start: 06-24-2021 HPV TESTING HPV TESTING [facility] Start: 06-24-2021 PAP TESTING PAP TESTING [facility] Start: 06-01-2021 COVID-19 VACCINE (4 - Booster for Pfizer series) COVID-19 VACCINE (4 - Booster for Pfizer series) [facility] Start: 11-27-2020 Influenza vaccination INFLUENZA (#1) [facility] Start: 12-25-2019 Lipid 1996 panel - Serum or Plasma Lipid Screening [facility] Start: 12-25-2019 LIPID SCREEN LIPID SCREEN [facility] Start: 12-24-2017 DIABETES SCREEN DIABETES SCREEN [facility] Start: 12-24-2017 Diabetes Screening Diabetes Screening [facility] Start: 01-29-2014 SHINGRIX VACCINE (1 of 2) SHINGRIX VACCINE (1 of 2) [facility] Start: 01-29-2009 COLOGUARD (FIT-DNA) COLOGUARD (FIT-DNA) [facility] Start: 01-29-[address] COLONOGRAPHY [facility] Start: 01-29-2009 FECAL OCCULT BLOOD FECAL OCCULT BLOOD [facility] Start: 01-29-2009 SIGMOIDOSCOPY SIGMOIDOSCOPY [facility] Start: 01-29-1983 Urine microalbumin profile [facility] Start: 01-29-1982 HEPATITIS C SCREENING HEPATITIS C SCREENING [facility] Start: 01-29-1982 HIV SCREENING HIV SCREENING [facility] Start: 1976 Adult depression screening assessment DEPRESSION SCREENING [facility] Start: 1965 HEPATITIS B (1 of 3 - 3-dose series) HEPATITIS B (1 of 3 - 3-dose series) [facility] Start: 1965 Hepatitis B Vaccine (1 of 3 - 3-dose series) Hepatitis B Vaccine (1 of 3 - 3-dose series) [facility] End: 07-20-2022 JOB SCREENING W ESSIE JOB SCREENING W ESSIE Radiology Routine Encounter for screening mammogram for malignant neoplasm of breast 1 Occurrences starting 06/20/2021 until 07/20/2022 [facility] Work Phone: Payers Date Payer Category Payer Unknown MMO MMO [employer] [id number] 2018-Present [phone] [address] [place] [address] PPO [id number] 2018 Unknown [id number] 2018 Unknown [id number] Social History Date Type Detail Facility Start: 06-19-2020 End: 06-23-2022 Tobacco smoking status NHIS Ex-smoker [facility] End: 09-10-2014 History of tobacco use Current smoker [facility] End: 09-10-2014 History of tobacco use Cigarette Smoker [facility] Start: 06-19-2020 End: 11-24-2022 Cigarettes smoked current (pack per day) - Reported 0.3 [facility] Start: 06-19-2020 End: 06-23-2022 Tobacco use and exposure Smokeless tobacco non-user [facility] Start: 06-20-2021 End: 06-23-2022 Alcohol intake Current drinker of alcohol (finding) [facility] Start: 06-08-2019 History SDOH Alcohol Comment 1 mixed drink per night [facility] Start: 06-08-2019 End: 06-23-2022 Tobacco Comment 06/07/2019 states 4 cigs per day [facility] Start: 1965 Sex Assigned At Female [facility] Start: 10-21-2021 End: 10-31-2021 Exposure to SARS-CoV-2 (event) Not sure [facility] Start: 06-23-2022 End: 11-24-2022 Tobacco use panel [facility] National Score (1-10 0), lower number is lower risk 65 [facility] Start: 06-15-2020 Gender identity Identifies as female gender (finding) [facility] Start: 06-15-2020 Sexual orientation Heterosexual (fin ding) [facility] Clinical Notes 06-14-2014 to 11-24-2022 Letter - Coordinator, Mammography - 11/24/2022 10:01 AM EDTBMargaret thomas Mammo Tech - 11/24/2022 7:50 AM EDTDemahamed Vila MD - 06/23/2022 8:38 AM EDT Note Date & Type Note Facility 11-24-2022 Miscellaneous Notes November 24, 2022 PID: [id number] Tata Julien [address] [place] [address] Dear Ms. Julien, We are pleased to [...] report will be kept on file at [facility] as part of your permanent medical record and are available for your continuing care. Thank you for allowing us to help in meeting your health care needs. Sincerely, Dr. Reddy Interpreting Radiologist [facility] (Normal over 40) documented in this encounter [facility] 11-24-2022 Note HNO ID: [id number] Author: Margaret Jovel Mammo Tech Service: ? Author Type: Senior Sales Administrator Type: Progress Notes Filed: 11/24/2022 8:09 AM [...] IV DATA: Not applicable SIGNED BY: Loni [email or web address] November 24, 2022 7:49 AM [facility] 11-24-2022 History of Presen t illness Narrative [...] DATA: Not applicable SIGNED BY: Margaret Jovel [employer] November 24, 2022 7:49 AM documented in this encounter [facility] 06-23-2022 Note HNO ID: [id number] Author: Linda Vila MD Service: ? Author [...] L0 SAB0 IAB0 Ectopic0 Multiple0 Live Births0 Casing Puller History LMP: 11/18/2015, Hysterectomy Age at Menarche: Age at First : Age at Menopause: Casing Puller History Comments: Sexual Activity: Yes; Male; hysterectomy Contraception: None, Surgical PAST MEDICAL HISTORY Diagnosis Date Elevated cholesterol Emphysema lung (HCC) 02/07/2019 mild Fibroid uterus Post-menopausal bleeding Simple endometrial hyperplasia without atypia Snoring PAST SURGICAL HISTORY Procedure Laterality Date COLONOSCOPY FLX DX W/COLLJ SPEC WHEN PFRMD 06/14/2014 Colonoscopy COLONOSCOPY FLX DX W/COLLJ SPEC WHEN PFRMD 06/08/2019 [facility] EXCISION GANGLION WRIST DORSAL/VOLAR PRIMARY right HYSTERECTOMY 01/13/2018 [facility] PAST SURGICAL HISTORY OF 11/11/2017 Hysteroscopy DANDC, Partial removal of submucosal fibroid SALPINGECTOMY Bilateral 01/13/2018 B/L [facility] STEREOTACTIC LOCALIZATION BREAST BIOPSY [...] external genitalia normal, normal Bartholin's glands, urethra, Lasalle's glands, no vulvar lesions, good vaginal support, [...] or sooner as needed Linda Catalan MD [facility] 06-23-2022 History of Presen t illness Narrative Tata is a 57 year old who presents for an annual gynecologic exam without complaints. Working [employer]. Loves to [employer] and camp. Postmenopausal: Yes HRT use: No. [...] L0 SAB0 IAB0 Ectopic0 Multiple0 Live Births0 Casing Puller History LMP: 11/18/2015, Hysterectomy Age at Menarche: Age at First : Age at Menopause: Casing Puller History Comments: Sexual Activity: Yes; Male; hysterectomy Contraception: None, Surgical PAST MEDICAL HISTORY Diagnosis Date Elevated cholesterol Emphysema lung (HCC) 02/07/2019 mild Fibroid uterus Post-menopausal bleeding Simple endometrial hyperplasia without atypia Snoring PAST SURGICAL HISTORY Procedure Laterality Date COLONOSCOPY FLX DX W/COLLJ SPEC WHEN PFRMD 06/14/2014 Colonoscopy COLONOSCOPY FLX DX W/COLLJ SPEC WHEN PFRMD 06/08/2019 Colonoscopy [facility] EXCISION GANGLION WRIST DORSAL/VOLAR PRIMARY right HYSTERECTOMY 01/13/2018 Total [facility]ar[facility] PAST SURGICAL HISTORY OF 11/11/2017 Hysteroscopy D&C, Partial removal of submucosal fibroid SALPINGECTOMY Bilateral 01/13/2018 B/L [facility] STEREOTACTIC LOCALIZATION BREAST BIOPSY [...] external genitalia normal, normal Bartholin's glands, urethra, Lasalle's glands, no vulvar lesions, good vaginal support, [...] Linda Catalan MD documented in this encounter [facility] 11-21-2021 Miscellaneous Notes November 21, 2021 PID: [id number] Tata Julien [address] [place] [id number] Dear Ms. Julien, We are pleased to [...] report will be kept on file at [facility] as part of your permanent medical record and are available for your continuing care. Thank you for allowing us to help in meeting your health care needs. Sincerely, Dr. House Interpreting Radiologist [facility] (Normal over 40) documented in this encounter [facility] 11-21-2021 History of Presen t illness Narrative [...] 2021 8:12 AM documented in this encounter [facility] 06-20-2021 History of Presen t illness Narrative Tata is a 56 year old who presents for an annual gynecologic exam without complaints. with stroke last year- doing well. Working for [employer]. Enjoys [employer]. Postmenopausal: Yes HRT use: No. Last Pap: [...] L0 SAB0 IAB0 Ectopic0 Multiple0 Live Births0 Casing Puller History LMP: 11/18/2015, Hysterectomy Age at Menarche: Age at First : Age at Menopause: Casing Puller History Comments: Sexual Activity: Yes; Male; hysterectomy Contraception: None, Surgical PAST MEDICAL HISTORY Diagnosis Date Elevated cholesterol Emphysema lung (HCC) 02/07/2019 mild Fibroid uterus Post-menopausal bleeding Simple endometrial hyperplasia without atypia Snoring PAST SURGICAL HISTORY Procedure Laterality Date COLONOSCOPY FLX DX W/COLLJ SPEC WHEN PFRMD 06/14/2014 Colonoscopy COLONOSCOPY FLX DX W/COLLJ SPEC WHEN PFRMD 06/08/2019 Colonoscopy [facility] EXCISION GANGLION WRIST DORSAL/VOLAR PRIMARY right HYSTERECTOMY 01/13/2018 [facility] PAST SURGICAL HISTORY OF 11/11/2017 Hysteroscopy D&C, Partial removal of submucosal fibroid SALPINGECTOMY Bilateral 01/13/2018 B/L [facility] STEREOTACTIC LOCALIZATION BREAST BIOPSY [...] external genitalia normal, normal Bartholin's glands, urethra, Lasalle's glands, no vulvar lesions, cervix surgically absent. [...] or sooner as needed Linda Catalan MD Bolting Machine Operator offered: Patient declines. documented in this encounter [facility] documented as of this encounter (statuses as of 06/20/2021) [facility]03-19-2015 History of Past illness Narrative* Problem Noted Date Resolved Date Special screening for malignant neoplasms, colon 06/14/2014 06/14/2014 FIBROADENOMA OF BREAST 09/17/2005 2 ABNORMAL MAMMOGRAM( other abnormal finding) 07/2901/07/2012 documented as of this encounter (statuses as of 11/22/2021) [facility]2015 History of Past illness Narrative* Problem Noted Date Resolved Date Special screening for malignant neoplasms, colon 06/14/2014 06/14/2014 FIBROADENOMA OF BREAST 09/17/2005 2 ABNORMAL MAMMOGRAM( other abnormal finding) 07/2901/07/2012 documented as of this encounter (statuses as of 11/25/2021) [facility]-2015 History of Past illness Narrative* Problem Noted Date Resolved Date Special screening for malignant neoplasms, colon 06/14/2014 06/14/2014 FIBROADENOMA OF BREAST 09/17/2005 2 ABNORMAL MAMMOGRAM( other abnormal finding) 07/2901/07/2012 documented as of this encounter (statuses as of 06/23/2022) [facility]2015 History of Past illness Narrative* Problem Noted Date Diagnosed Date Resolved Date Special screening for malign ant neoplasms, colon 06/14/2014 06/14/2014 FIBROADENOMA OF BREAST 09/17/200501/06 ABNORMAL MAMMOGRAM( other abnormal finding) 08/25/2005 01/07/2012 documented as of this encounter (statuses as of 11/26/2022) [facility]2015 History of Past illness Narrative* Problem Noted Date Diagnosed Date Resolved Date Special screening for malign ant neoplasms, colon 06/14/2014 06/14/2014 FIBROADENOMA OF BREAST 09/17/200501/06 ABNORMAL MAMMOGRAM( other abnormal finding) 08/25/2005 01/07/2012 documented as of this encounter (statuses as of 01/31/2023) [facility] Diagnosis Encounter for gynecological examination (general) (routine) without abnormal findings- Primary Encounter for screening mammogram for malignant neoplasm of breast Other screening mammogram [facility] Diagnosis Encounter for screening mammogram for malignant neoplasm of breast Other screening mammogram [facility] Diagnosis Encounter for gynecological examination without abnormal finding- Primary Routine gynecological examination Encounter for screening for malignant neoplasm of cervix Screening for malignant neoplasm of the cervix Special screening examination for human papillomavirus (HPV) Encounter for screening mammogram for malignant neoplasm of breast Other screening mammogram [facility] Diagnosis Encounter for screening mammogram for malignant neoplasm of breast Other screening mammogram documented in this encounter [facility] for referral (narrative)* Diagnostic Procedure Only (Routine) - Pending Review Specialty Diagnoses / Procedures Referred By Conttuyet t Referred To Contact [facility] Diagnoses Encounter for screening mammogram for malignant neoplasm of breast Procedures JOB SCREENING W ESSIE SCREENING DIGITAL BREAST TOMOSYNTHESIS BI SCREENING MAMMOGRAPHY BI 2-VIEW BREAST INC Linda Roldan MD [address] [place] [address] [facility] [address] [place] [address] Referral ID Status Reason Start Date Expiration Date Visits Requested Visits Authorized [id number] Pending Review Auto-Generat ed Referral 06/20/2021 07/20/2022 1 1 T [facility] for referral (narrative)* Diagnostic Procedure Only (Routine) - Closed Specialty Diagnoses / Procedures Referred By Contac t Referred To Contact [facility] Diagnoses Encounter for screening mammogram for malignant neoplasm of breast Procedures JOB SCREENING W ESSIE SCREENING DIGITAL BREAST TOMOSYNTHESIS BI SCREENING MAMMOGRAPHY BI 2-VIEW BREAST INC CAD Linda Arredondo MD [address] [place] [address] [facility] [address] [place] [phone] Referral ID Status Reason Start Date Expiration Date V isits Requested Visits Authorized [id number] Closed Auto-Generate d Referral 06/20/2021 07/20/2022 [address] [facility] for referral (narrative)* Diagnostic Procedure Only (Routine) - Pending Review Specialty Diagnoses / Procedures Referred By Conttuyet t Referred To Contact [facility] Diagnoses Encounter for screening mammogram for malignant neoplasm of breast Procedures JOB SCREENING W ESSIE SCREENING DIGITAL BREAST TOMOSYNTHESIS BI SCREENING MAMMOGRAPHY BI 2-VIEW BREAST INC CAD Linda Arredondo MD [address] [place] [address] [facility] [address] [place] [address] Referral ID Status Reason Start Date Expiration Date Visits Requested Visits Authorized [id number] Pending Review Auto-Generat ed Referral 06/23/2022 07/23/2023 1 1 [facility] for referral (narrative)* Diagnostic Procedure Only (Routine) - Closed Specialty Diagnoses / Procedures Referred By Raiza martinez Referred To Contact [facility] Diagnoses Encounter for screening mammogram for malignant neoplasm of breast Procedures JOB SCREENING W ESSIE SCREENING DIGITAL BREAST TOMOSYNTHESIS BI SCREENING MAMMOGRAPHY BI 2-VIEW BREAST INC CAD Linda Arredondo MD [address] [place] [address] [facility] [address] [place] [phone] Referral ID Status Reason Start Date Expiration Date V isits Requested Visits Authorized [id number] Closed Auto-Generate d Referral 06/23/2022 07/23/2023 1 1 [facility] for visit Narrative* Diagnostic Procedure Only (Routine) - Closed Specialty Diagnoses / Procedures Referred By Raiza martinez Referred To Contact [facility] Diagnoses Encounter for screening mammogram for malignant neoplasm of breast Procedures JOB SCREENING W ESSIE SCREENING DIGITAL BREAST TOMOSYNTHESIS BI SCREENING MAMMOGRAPHY BI 2-VIEW BREAST INC CAD Linda Arredondo MD [address] [place] [address] [facility] [address] [place] [address] Referral ID Status Reason Start Date Expiration Date V isits Requested Visits Authorized [id number] Closed Auto-Generate d Referral 06/23/2022 07/23/2023 1 1 [facility] Advance Directives Documents on File Type Date Recorded Patient Circuit Board Drafter Expl anation Advance Directive(s) 06/08/2019 6:21 AM [...] or prosecute any alcohol or drug abuse patient.[facility] the event this information is protected by the Federal Confidentiality of Alcohol and Drug Abuse Patient Records regulations: The Federal rules restrict any use of the information to criminally investigate or prosecute any alcohol or drug abuse patient.[facility] the event this information is protected by the Federal Confidentiality of Alcohol and Drug Abuse Patient Records regulations: The Federal rules restrict any use of the information to criminally investigate or prosecute any alcohol or drug abuse patient.[facility] the event this information is protected by the Federal Confidentiality of Alcohol and Drug Abuse Patient Records regulations: The Federal rules restrict any use of the information to criminally investigate or prosecute any alcohol or drug abuse patient.[facility] the event this information is protected by the Federal Confidentiality of Alcohol and Drug Abuse Patient Records regulations: The Federal rules restrict any use of the information to criminally investigate or prosecute any alcohol or drug abuse patient.[facility] the event this information is protected by the Federal Confidentiality of Alcohol and Drug Abuse Patient Records regulations: The Federal rules restrict any use of the information to criminally investigate or prosecute any alcohol or drug abuse patient.[facility] Reason for Visit (unrecogniz ed section and content) Reason Comments Radiology Mammogram Specialty Diagnoses / Procedures Referred By Contac t Referred To Contact [facility] Diagnoses Encounter for screening mammogram for malignant neoplasm of breast Procedures JOB SCREENING W ESSIE SCREENING DIGITAL BREAST TOMOSYNTHESIS BI SCREENING MAMMOGRAPHY BI 2-VIEW BREAST INC CAD Linda Arredondo MD [address] [place] [address] [facility] [address] [place] [phone] Referral ID Status Reason Start Date Expiration Date V isits Requested Visits Authorized [id number] Closed Auto-Generate d Referral 06/20/2021 07/20/2022 1 1 Reason Onset Date Comments Yearly Exam 06/23/2022 Care Teams (unrecognized sec tion and content) Chief Executive Relationship Specialty Start Date End Date Teo Briones Jr., MD PCP - General Internal Medicine 12/21/13 Chief Executive Relationship Specialty Start Date End Date Teo Briones Jr., MD PCP - General Internal Medicine 12/21/13 Chief Executive Relationship Specialty Start Date End Date Teo Briones Jr., MD PCP - General Internal Medicine 12/21/13 Chief Executive Relationship Specialty Start Date End Date Teo Briones Jr., MD PCP - General Internal Medicine 12/21/13 Chief Executive Relationship Specialty Start Date End Date Teo [...] BE BASED ON THE PRIMARY CLINICAL RECORDS. [employer] provides no warranty or guarantee of the accuracy or completeness of information in this document.
== END | disposition home or self-care (01) ==
LOC: LABSPEC 07:51
PROVIDERS: PCP Nurse Practitioner Family; Visit Provider Nurse Practitioner Family
DX: N39.0 Urinary tract infection, site not specified (principal)
CPT/HCPCS: 88108; 88313

== ENCOUNTER 2023-06-25 10:15 | Day surgery (SDC) | payer OTHER, SELFPAY ==
[2023-06-25] VITALS (7 sets, daily range): BP systolic 123–143; BP diastolic 70–88; PULSE 56–87; RESP 16–20; TEMP 36.1–36.9; O2SAT 97–100; BMI 33.0
--- NOTE | 2023-06-25 | IMM_PTH ---
PATIENT: ROSE REYES LOC: [facility] [place] U#:[id number] AGE/SX: 58/F ROOM: RE06/25/[address]: Dr. Hardeep Dos Santos MD : 1965 BED: DIS: 06/25/2023 SPEC #: [id number] RECD: 06/29/23 12:23 STATUS: SOUDori REQ #: [id number] NAE: 06/25/23 00:[address]: Hardeep Dos Santos DEPT: IMMUNOHISTOCHEMISTRY RECD BY: Gustavo Sutton ENTERED: 06/29/23 12:25 SP TYPE: IMMUNO OTHR DR: Lauren Plunkett, MUSIC PUBLISHER-C Tissues: Urinary bladder, NOS Procedures: CK20 (add) CK7 (add) CK8 (add) ANTHONY (add) MACRO (add) 34BE12 (add) Pankeratin (initial) Pankeratin (add) GATA3 (add) PSAP (add) PHYSICIAN & INSTITUTION [address] [address] SPECIMEN INFORMATION: Tissue Source: Bladder tumor Clinical Info: Neoplasm of uncertain behavior of bladder Specimen Number: [id number] CPT code: 30914, 36479 X17 METHODOLOGY: Deparaffinized sections of prefer/formalin-fixed tissue or PAP/DQ stained slides are incubated with monoclonal/polyclonal antibodies/oligonucleotide probes. Localization is made via biotin free immunoperoxidase method. Appropriate controls are performed and reacted as expected. Results on target cell population are indicated in the following table: RESULTS: ANTIBODY / CLONE RESULT BLOCK 1 GATA3 (L50-823) negative AE1-3 (AE1/AE3/PCK26) negative CK7 (OV-TL12/30) negative CK8 (89rlswM95) negative CK20 (KS20.8) negative 34BE12 (34BE12) negative CD68 (KP-1) positive PSAP (PASE/4LJ) negative ANTHONY (E29) negative BLOCK 2 GATA3 (L50-823) negative AE1-3 (AE1/AE3/PCK26) negative CK7 (OV-TL12/30) negative CK8 (97hbweO55) negative CK20 (KS20.8) negative 34BE12 (34BE12) negative CD68 (KP-1) positive PSAP (PASE/4LJ) negative ANTHONY (E29) negative These tests were developed and their performance characteristics determined by [facility]. They may not have been cleared or approved by the U.S. Food and Drug Administration. The FDA has determined that such clearance or approval is not necessary. The above immunohistochemical/dualISH markers are ordered and reviewed by the Pathologist. INTERPRETATION: Bladder tumor, transurethral resection: No evidence of malignancy. AM/mr 06/30/23
[2023-06-25] MEDS: Lactated Ringers 1,000 ML 15 ML IV (10:35)
[2023-06-25] MEDS: Cefazolin 2 GM in 0.9% Normal Saline (100mL Bag) 100 ML IV (11:27)
[2023-06-25] MEDS: MitoMYcin 40 MG in Syringe 1 EACH 2400 MG INSTILLAT (11:47)
--- NOTE | 2023-06-25 11:52 | HP.PCM_ITS ---
HPI - General General Date of Service: 06/25/23 Chief Complaint: Reresection of bladder tumor HPI Narrative ROSE REYES, is a 58 F who presents for reresection of bladder cancer she underwent initial resection that showed possible muscle invasive disease jennifer rounding the reresection to further stage the patient [facility] [place] Medical History (Updated 06/22/23 @ 09:00 by Jeni Flowers) Alcohol use Bladder disease Cancer Encounter for screening for malignant neoplasm of lung Former smoker High cholesterol History of tobacco use Hyperlipidemia Polyp of colon Tobacco abuse Wears glasses Home Medications aspirin 81 mg tablet,delayed release 81 mg PO DAILY@0800 11/04/17 [History Last Taken 06/17/23] calcium carbonate 600 mg-vitamin D3 5 mcg (200 unit) tablet 1 ea PO DAILY 11/04/17 [History Last Taken 06/24/23] cholecalciferol (vitamin D3) 25 mcg (1,000 unit) capsule 1,000 unit PO DAILY 11/04/17 [History Last Taken 06/24/23] coenzyme Q10 50 mg chewable tablet 100 mg PO DAILY 11/04/17 [History Last Taken 06/24/23] multivitamin 1 ea PO DAILY 11/04/17 [History Last Taken 06/24/23] pravastatin 80 mg tablet 80 mg PO DAILY 11/04/17 [History Last Taken 06/24/23] naproxen sodium 220 mg capsule 220 mg PO DAILY PRN Pain Or Fever 02/07/19 [History Last Taken 06/24/23] ciprofloxacin HCl 500 mg tablet (Cipro) 500 mg PO BID #10 tabs 06/25/23 [Rx Last Taken Unknown] Allergy/AdvReac Type Severity Reaction Status Date / Time No Known Allergies Allergy Verified 06/25/23 10:30 Family History Father Hypertension Mother Hyperlipidemia Cancer, Onset Age: 77 lung cancer Surgical History (Updated 06/22/23 @ 09:00 by Jeni Flowers) History of colonoscopy History of cystoscopy History of total hysterectomy with bilateral salpingo-oophorectomy (BSO) Social History Smoking Status: Former smoker Tobacco: How many years used: 30 second hand exposure: Yes counseling given: provider counseling Vital Signs Vital Signs Vital Signs: 06/25/23 10:30 06/25/23 10:30 Temperature 98.5 F Temperature Source Temporal Pulse Rate 74 Respiratory Rate 16 Respiratory Pattern Normal Blood Pressure 143/70 H Blood Pressure Mean 94 Blood Pressure Source Monitor Blood Pressure Position Semi-Fowlers Blood Pressure Location Left Arm Pulse Ox 100 Oxygen Delivery Method Room Air Weight Weight: 98.611 kg Body Mass Index (BMI) 33.0
--- NOTE | 2023-06-25 11:53 | PCM.DC ---
Discharge Instructions Diet Discharge Diet: No restrictions Activity Discharge Activity: Return to Normal Activity and May Not Drive (while taking narcotic pain medications.) Dressing / Incision Call your doctor if you observe: Fever of 101 or Higher Follow Up Care Please Follow Up With: Hardeep Dos Santos MD When: Call [phone] for an appointment Test Results: Test results from this visit will be discussed in further detail at your follow-up appointment, if applicable. Discharge Plan Admission Primary Reason for Your Visit: tur resection of bladder Attending Provider: Hardeep Dos Santos Primary Care Provider: Lauren Plunkett Discharge Orders/Prescriptions Prescriptions: New ciprofloxacin HCl [Cipro] 500 mg tablet 500 mg PO BID Qty: 10 0RF Continued multivitamin 1 EACH tablet 1 ea PO DAILY calcium carbonate-vitamin D3 1 EACH tablet 1 ea PO DAILY aspirin 81 MG tablet 81 mg PO DAILY@0800 pravastatin 80 MG tablet 80 mg PO DAILY cholecalciferol (vitamin D3) 1,000 UNIT capsule 1,000 unit PO DAILY coenzyme Q10 50 MG tablet,chewable 100 mg PO DAILY naproxen sodium 220 MG capsule 220 mg PO DAILY PRN (Reason: Pain Or Fever) Referrals / Follow Up: Hardeep Dos Santos MD [Med Staff - Active Staff] - Lauren Plunkett PHOTOENGRAVING FINISHER-C [Primary Care Provider] - Disposition Disposition (needs filled in before D/C Order can be placed): Home, Self Care
--- NOTE | 2023-06-25 11:53 | PCM.OPRPT ---
Report of Operation Date of Procedure: 06/25/23 Pre-Operative Diagnosis: Bladder cancer Post-Operative Diagnosis: The same Surgery/Procedure Performed:: Transurethral resection of bladder cancer Description of Surgical Findings:: Patient was taken back to the operating room after smooth induction of general anesthesia she was placed in dorsolithotomy position. The urethrovaginal area prepped and draped in usual sterile fashion went into the bladder with a 24 Anguillan noncontinuous flow bipolar Olympus resectoscope I could see the the prior resection site there was some scar tissue. I then used the large loop and resected deep into the bladder getting good muscle tissue did not go all the way through the bladder but went fairly deep into the deep mucosa of the bladder and then cauterized extensively the size of the resection was for by 4 x 5 cm in size after the resection was done Mitomycin-C was put inside the bladder with a catheter and she will have the catheter removed and an hour and go home after she is able to urinate we will follow-up in 2 weeks to review the tissue report Surgeon: Hardeep Dos Santos Type of Anesthesia: General Drains: 18 fr Admit VTE Documentation VTE Present on Admission: No VTE Mechan Device Prophylaxis: SCD's VTE Pharm Prophylaxis ordered?: No
--- NOTE | 2023-06-25 12:30 | BLB_PTH ---
PATIENT: ROSE REYES LOC: [facility] – [place] U#:[id number] AGE/SX: 58/F ROOM: RE06/25/[address]: Dr. Hardeep Dos Santos MD : 1965 BED: DIS: 06/25/2023 SPEC #: [id number] RECD: 06/28/23 08:04 STATUS: RYLEE BARBOZA #: [id number] NAE: 06/25/23 12:[address]: Hardeep Dos Santos DEPT: SURGICAL PATHOLOGY RECD BY: Ale Post ENTERED: 06/28/23 08:05 SP TYPE: TURB OTHR DR: Lauren Plunkett, GREENHOUSE SUPERINTENDENT-C Tissues: Urinary bladder, NOS Procedures: Surgery Specimen Level V HEADER OPERATION: Cystoscopy transurethral resection of bladder tumor PRE-OP DIAGNOSIS: Neoplasm of uncertain behavior of bladder TISSUE SUBMITTED: Bladder tumor MICROSCOPIC DIAGNOSIS Ureter bladder tumor, transurethral resection: Ulceration with associated benign histiocytic proliferation, acute and chronic inflammation and abundant cellular and [id number] debris. No evidence of malignancy. See comment. 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 Immunohistochemistry ([id number]) supports the above diagnosis. Case has been reviewed in consultation with Dr. Troncoso who concurs with the above diagnosis. IDC:[email or web address] MICROSCOPIC DESCRIPTION Slides are reviewed. GROSS DESCRIPTION Received in fixative is one container labeled with the patient's name and designated Bladder tumor. The specimen consists of multiple irregular fragments of vázquez-brown soft tissue that in aggregate measure 2.0 x 2.0 x 0.6 cm. The specimen is totally submitted in two cassettes. / 06/28/23 TC:2 CPT: 74607
--- NOTE | 2023-06-25 13:01 | SUR.PHASEII ---
CATHETER UNCLAMPED,MITOMYCIN DRAINAED AND POLLACK REMOVED.
== END 2023-06-25 13:51 | disposition home or self-care (01) ==
LOC: SDC 10:17 → AC 10:18
PROVIDERS: PCP Nurse Practitioner Family; Referring Provider Urology; Visit Provider Urology
PROC: 0T5B8ZZ Destruction of Bladder, Via Natural or Artificial Opening Endoscopic (ICD-10-PCS; CPT 51720; principal; 2023-06-25 12:20)
DX: C67.9 Malignant neoplasm of bladder, unspecified (principal); E78.00 Pure hypercholesterolemia, unspecified; Z87.891 Personal history of nicotine dependence; Z79.82 Long term (current) use of aspirin
CPT/HCPCS: 52240; 00912; 88307; 88341; 88342; J7120; J9280; J2405

== ENCOUNTER → 2023-12-23 | Outpatient (CLI) | payer OTHER, SELFPAY ==
[2023-12-23 16:06] LABS: Cytology, Body Fluid / CSF SEE PATHOLOGY REPORT
--- NOTE | 2023-12-24 | CYSPIN_PTH ---
PATIENT: ROSE REYES LOC: [facility] U#:[id number] AGE/SX: 58/F ROOM: RE12/23/[address]: Dr. Hardeep Dos Santos MD : 1965 BED: DIS: 12/23/2023 SPEC #: [id number] RECD: 12/24/23 11:42 STATUS: RYLEE BARBOZA #: [id number] NAE: 12/24/23 00:[address]: Hardeep Dos Santos DEPT: CYTOLOGY RECD BY: Drew Faulkner ENTERED: 12/24/23 11:43 SP TYPE: CYSPIN FL OTHR DR: Lauren Plunkett, PSYCHOLOGIST CHIEF-C Tissues: Urine Procedures: Pap Stain (control) Special Stain Group II Cytospin Fluid HEADER OPERATION: Not noted PRE-OP DIAGNOSIS: Malignant neoplasm of lateral wall of bladder TISSUE SUBMITTED: Urine for cytology DIAGNOSIS CYTOLOGY Urine for cytology (cytospin): Negative for high grade urothelial carcinoma, Sofia Category System II. See comment. AM.mr 12/24/2023 COMMENT The Sofia System for urine cytology diagnostic categorization was used in the evaluation of this case. CYTOLOGY STUDY Slides are reviewed. CYTOLOGY GROSS Received is 80 ml of gold-cloudy fluid labeled with the patient's name and and designated per the requisition as urine. Submitted for cytology preparation. Mr 12/24/2023 TC:5 CPT: 26886
== END | disposition home or self-care (01) ==
LOC: LABSPEC 16:01
PROVIDERS: PCP Nurse Practitioner Family; Referring Provider Urology; Visit Provider Urology
DX: C67.2 Malignant neoplasm of lateral wall of bladder (principal)
CPT/HCPCS: 88108; 88313

== ENCOUNTER → 2024-01-12 | Outpatient (CLI) | payer OTHER, SELFPAY ==
[2024-01-12 12:19] LABS: Absolute Lymphocyte Count 1.89 X10^3/uL (0.83-4.51); Absolute Neutrophil Count 3.2 X10^3/uL (2.0-7.7); Basophil# 0.08 X10^3/uL; Basophil% 1.3 % (0-1); Eosinophil# 0.28 X10^3/uL; Eosinophils% 4.7 % (0-5); Hematocrit 42.5 % (37-47); Hemoglobin 13.5 g/dL (12.0-15.0); Lymphocyte # 1.89 X10^3/ul (0.83-4.51); Lymphocyte % 31.5 % (19-41); Mean Corp Hgb Conc 31.8 g/dL (32-36); Mean Corpuscular Hgb 29.9 pg (27.0-32.0); Mean Corpuscular Volume 94.2 fL (81-99); Mean Platelet Vol. 11.3 fl (6.2-12.0); Monocyte% 8.3 % (0-10); NRBC Flagged by Analyzer 0 % (0-5); Neutrophil # 3.22 X10^3/uL (2.7-7.7); Neutrophil % 53.7 % (47-70); Platelet Count 301 K/mm3 (150-450); RBC Distribution Width CV 12.7 % (11.6-14.6); RBC Distribution Width SD 43.8 fl (35.1-43.9); Red Blood Count 4.51 M/mm3 (4.2-5.4)
[2024-01-12 13:02] LABS: AST(SGOT) 23 U/L (15-37); Alanine Aminotransfer ALT/SGPT 33 U/L (13-56); Albumin, Serum 3.8 g/dL (3.2-5.0); Alkaline Phosphatase 73 U/L (45-117); Anion Gap 8 (5-15); BUN 14 mg/dL (7-18); BUN/Creat Ratio 19.8 RATIO (10-20); Calcium,Total 9.9 mg/dL (8.5-10.1); Chloride 105 mmol/L (98-107); Cholesterol 238 mg/dL (200); Creatinine, Serum 0.71 mg/dL (0.55-1.02); EST Glomerular Filtration Rate 90 mL/min (>60); Est Glom Filt Rate - Afr Amer 108 mL/min (>60); Glucose 93 mg/dL (74-106); High Density Lipoprotein 75 mg/dL; Potassium 4.1 mmol/L (3.5-5.1); Protein, Total 7.8 g/dL (6.4-8.2); Sodium Level 137 mmol/L (136-145); Triglycerides 133 mg/dL; Very Low Density Lipoprotein 27 mg/dL (5-40)
== END | disposition home or self-care (01) ==
LOC: BFHLAB 08:50
PROVIDERS: PCP Nurse Practitioner Family; Referring Provider Nurse Practitioner Family; Visit Provider Nurse Practitioner Family
DX: Z00.01 Encounter for general adult medical examination with abnormal findings (principal); E55.9 Vitamin D deficiency, unspecified
CPT/HCPCS: 36415; 80053; 80061; 82306; 85025

== ENCOUNTER → 2024-05-02 | Outpatient (CLI) | payer OTHER, SELFPAY ==
--- NOTE | 2024-05-02 16:05 | CT_ITS ---
PROCEDURE: LOW DOSE CT LUNG SCREENING TECHNIQUE: Low Dose CT Lung Screening without contrast COMPARISON: None. FINDINGS: PULMONARY NODULES: (Only nodules >6mm are reported) Pulmonary Nodules: No concerning pulmonary nodules. Hardware:None Lymph Nodes:No mediastinal hilar or axillary lymphadenopathy. Heart and Vasculature:Coronary artery calcifications.Thoracic aorta and pulmonary arteries have normal contours; noncontrast technique limits evaluation. Coronary Artery Calcifications: Lungs and Airways: Right middle lobe and lingular scarring. Pleura:No pleural effusion. No pneumothorax. Upper Abdomen:Visualized portions of the upper abdominal viscera are unremarkable. Bones:Bone windows are unremarkable. CT/Low Dose CT Lung Screening IMPRESSION: 1. BASED ON THE ACR LUNG RADS FOR THE MOST SUSPICIOUS NODULE (IF ANY) DESCRIBE D IN THIS REPORT, THE OVERALL LUNG RADS SCORE IS 1. 1 - NEGATIVE. RECOMMEND 12-MONTH SCREENING LDCT.. 2. SMOKING CESSATION COUNSELING IS RECOMMENDED IF THE PATIENT IS STILL SMOKING . 3. OTHER SIGNIFICANT FINDINGSNone. Reading Location: [id number]
== END | disposition home or self-care (01) ==
LOC: CT 16:04
PROVIDERS: PCP Nurse Practitioner Family; Referring Provider Nurse Practitioner Family; Visit Provider Nurse Practitioner Family
DX: Z12.2 Encounter for screening for malignant neoplasm of respiratory organs (principal); Z87.891 Personal history of nicotine dependence
CPT/HCPCS: 71271

== ENCOUNTER → 2024-06-28 | Outpatient (CLI) | payer OTHER, SELFPAY ==
--- NOTE | 2024-06-28 07:53 | CT_ITS ---
PROCEDURE: ABDOMEN/PELVIS WITH CONTRAST 06/28/2024 REASON FOR EXAM: NEOPLASM OF BLADDER WALL TECHNIQUE: Abdomen and pelvis CT with intravenous contrast. Coronal and Sagittal reconstruction series were provided. PATIENT PREPARATION: Per protocol ORAL CONTRAST TYPE: None. CONTRAST: Isovue-300 VOLUME: 91 mL One or more dose reduction techniques were used (e.g., Automated exposure control, adjustment of the mA and/or kV according to patient size, use of iterative reconstruction technique. RADIATION DOSE SUMMARY: CTDlvol: 17.5 mGy DLP: 2187.07 mGycm COMPARISON: None FINDINGS: Lung bases: Lung bases are clear. Coronary artery calcification. Liver: Diffuse fatty infiltration. Subcentimeter cysts seen in the medial aspect of the left lobe of the liver. Gallbladder: Unremarkable Spleen: Normal size. Pancreas: Normal size without evidence of mass surrounding inflammation or ductal dilation. Adrenals: Unremarkable. Kidneys: Punctate nonobstructive calculus in the lower pole calyx of the right kidney. Bladder: Mild degree of diffuse bladder wall thickening. Reproductive Organs: Prior hysterectomy. Adnexal regions are unremarkable. Bowel: Colonic diverticulosis without diverticulitis. Scattered diverticula are seen in the right hemicolon. Appendix: The appendix is not identified. There is no inflammatory process identified in the right lower quadrant to suggest appendicitis. Lymph nodes: No suspicious lymph node enlargement. Vasculature: Mild diffuse atherosclerotic calcifications of the abdominal aorta and the major visceral branches. Are noted. Peritoneum / Retroperitoneum: Unremarkable. Bones: Degenerative changes of the spine. CT/Abdomen/Pelvis WITH Contrast IMPRESSION: Mild degree of bladder wall thickening. Nonobstructive punctate calculus in the lower pole calyx of the right kidney. Sigmoid diverticulosis without diverticulitis. Scattered diverticula are seen in the right hemicolon. Reading Location: [facility]
== END | disposition home or self-care (01) ==
LOC: CT 07:52
PROVIDERS: PCP Nurse Practitioner Family; Referring Provider Urology; Visit Provider Urology
DX: C67.2 Malignant neoplasm of lateral wall of bladder (principal)
CPT/HCPCS: 74177; Q9967